=== PATIENT | female | born 1955 | race Caucasian/White ===

== ENCOUNTER 2023-07-25 08:19 | Outpatient (OUT) | payer MEDICARE, OTHER, SELFPAY ==
[2023-07-25 09:57] LABS: Thyroid Stimulating Hormone 1.292 uIU/mL (0.358-3.740)
== END 2023-07-25 08:20 | disposition home or self-care (01) ==
LOC: LAB 08:24
PROVIDERS: PCP Internal Medicine; Visit Provider Internal Medicine
DX: E06.3 Autoimmune thyroiditis (principal)
CPT/HCPCS: 36415; 84443

== ENCOUNTER 2024-03-17 14:11 | Outpatient (OUT) | payer MEDICARE, OTHER, SELFPAY ==
--- OUTSIDE RECORDS SUMMARY | 2024-03-17 14:16 | XMS_ITS | CCD ---
Author Organization [facility]iniSyn[facility] Care Team Providers Care Carbide Die Maker Name Role Phone BernieXiang Unavailable REQUEST, DR GRANT LISTED Admitting Unavaila ble REQUEST, DR GRANT LISTED Attending Unavaila ble DEXTER, DR GREWAL Primary Care Unavailable REQUEST, DR GRANT LISTED Consulting Unavaila ble DEXTER, DR GREWAL Admitting Unavailable DEXTER, DR GREWAL Attending Unavailable DEXTER, DR GREWAL Primary Care Unavailable DEXTER, DR GREWAL Consulting Unavailable DO Christophe Renteria Primary Care Provider DO Syeda Moreno Attending Provider Christophe Renteria Unavailable DO Christophe Renteria Primary Care Provider [phone] Self, Referral Attending Provider Unavailable Christophe Renteria Primary Care Unavailable Self, Referral Attending Unavailable Self, Referral Admitting Unavailable JASON RATLIFF Attending Unavailable BILL SOLIS Attending Unavailable BILL SOLIS Attending Unavailable Medications Current Medications Medication Drug Class(es) Dates Sig (Normalized) Sig (Original) alendronic acid 70 mg oral tablet (6 sources) Bisphosphonate Start: 11-16-2023 Alendronate Active 0 .ROUTE .COMPLEX November 16, 2023 1:56pm TAKE 1 TABLET WEEKLY WITH A FULL GLASS OF WATER AND AVOID LAYING FLAT OR EATING FOR 30 MINUTES Start: 11-16-2023 End: 11-16-2023 take 1 tablet by mouth every week Alendronate Discontinued 70 MG PO every week November 16, 2023 12:00am November 16, 2023 1:56pm TAKE 1 TABLET WEEKLY WITH A FULL GLASS OF WATER AND AVOID LAYING FLAT OR EATING FOR 30 MINUTES Alendronate Sodi um 70 MG TAKE 1 TABLET WEEKLY WITH A FULL GLASS OF WATER AND AVOID LAYING FLAT OR EATING FOR 30 MINUTES Active 1 ml denosumab 60 mg/ml prefilled syringe (3 sources) RANK Ligand Inhibitor Prolia 60 MG/ML Subcutaneous Active diclofenac sodium 0.01 mg/mg topical gel (3 sources) Nonsteroidal Anti-inflammatory Drug Start: 1 Voltaren 1 % apply 1-2 grams to affected area Transdermal BID PRN for 30 days Jun, Active famotidine 20 mg oral tablet (6 sources) Histamine-2 Receptor Antagonist Start: 3 take 1 tablet by mouth every twelve hours Famotidine 20 MG 1 tablet Orally bid Jan, Active Start: 05-28-2019 take 20 mg by mouth once daily Famotidine Active 20 MG PO Daily May 28, 2019 12:00am ibuprofen 800 mg oral tablet (3 sources) Nonsteroidal Anti-inflammatory Drug take 1 tablet by mouth three times daily at mealtime as needed Ibuprofen 800 MG 1 tablet with food or milk as needed Orally Three times a day Active levothyroxine sodium 0.075 mg oral tablet (7 sources) l-Thyroxine Start: 019 take 1 tablet by mouth once daily Levothyroxine (Synthroid) 75 mcg tablet Active 75 MCG PO Daily May 28, 2019 12:00am take 1 tablet by mouth once zaina y Levothyroxine Sodium 75 MCG TAKE 1 TABLET BY MOUTH EVERY DAY ON EMPTY STOMACH Active take 1 tablet by moriah th once daily in the morning Levothyroxine Sodium 50 MCG 1 tablet on an empty stomach in the morning Orally Once a day Active meloxicam 15 mg oral tablet (3 sources) Nonsteroidal Anti-inflammatory Drug Start: 06-19-2021 take 1 tablet by mouth every twenty-four hours Meloxicam 15 MG 1 tablet Orally Once a day for 30 day(s) Jun, Active Completed/Discontinued Medications Medication Drug Class(es) Dates Sig (Normalized) Sig (Original) azithromycin 250 mg oral tablet (4 sources) Macrolide Antimicrobial Start: 12-17-2022 Azithromycin 250 MG as directed Orally daily for 5 days December, Not-Taking/PRN predniSONE 20 mg oral tablet (3 sources) Start: 02-13-2023 predniSONE 20 MG 1 tablet Orally twice daily w food x 4 days then qd w/ food x 4 days for 8 days Jan, Not-Taking/PRN Triamcinolone (8 sources) Corticosteroid Start: 04-30-2020 Kenalog -40 mg 14 Apr, 2020 40 mg Start: 03-31-2018 Kenalog -40 mg 15 Mar, 2018 10 mg Problems Active Problems Problem Classification Problem Date Documented Date Episodic/Chronic Acute bronchitis (2 sources) Acute bronchitis; Translations: [Acute bronchitis due to other specified organisms] Episodic Asthma (2 sources) Cough variant asthma; Translations: [Cough variant asthma] Chronic Conditions associated with dizziness or vertigo (2 sources) Vertigo; Translations: [Dizziness and giddiness] 05-28-2019 Episodic Esophageal disorders (6 sources) Esophageal reflux finding; Translations: [Esophageal reflux] Onset: 10-19-2013 Chronic Immunizations and screening for infectious disease (2 sources) Contact with and (suspected) exposure to other viral communicable diseases; Translations: [Contact with and (suspected) exposure to COVID-19] Episodic Osteoarthritis (10 sources) Arthritis of right knee; Translations: [Unilateral primary osteoarthritis, right knee] Chronic Osteoporosis (3 sources) Primary osteoporosis; Translations: [Age-related osteoporosis without current pathological fracture] Chronic Other congenital anomalies (2 sources) Congenital spondylolysis of lumbosacral region; Translations: [Congenital spondylolysis, lumbosacral region] Onset: 01-19-2018 Chronic Other connective tissue disease (1 source) Lateral epicondylitis, right elbow Episodic Other injuries and conditions due to external causes (2 sources) History of fall; Translations: [History of falling] Episodic Other lower respiratory disease (2 sources) Chronic cough; Translations: [Chronic cough] Episodic Other screening for suspected conditions (not mental disorders or infectious disease) (3 sources) Encounter for screening mammogram for malignant neoplasm of breast; Translations: [Encounter for screening for malignant neoplasm of colon] Onset: 12-14-2023 Episodic Other upper respiratory infections (6 sources) Acute maxillary sinusitis; Translations: [Acute recurrent maxillary sinusitis] Onset: 02-21-2015 Resolved: 05-25-2020 Episodic Residual codes; unclassified (2 sources) Left against medical advice; Translations: [Procedure and treatment not carried out because of patient's decision for other reasons] 05-28-2019 Episodic Syncope (2 sources) Syncope; Translations: [Syncope and collapse] 05-28-2019 Episodic Systemic lupus erythematosus and connective tissue disorders (2 sources) Autoimmune disease; Translations: [Autoimmune disease, not elsewhere classified] Onset: 10-19-2013 Chronic Thyroid disorders (15 sources) Autoimmune thyroiditis; Translations: [Kvng thyroiditis] Onset: 10-19-2013 Chronic Past or Other Problems Problem Classification Problem Date Documented Da te Episodic/Chronic Bacterial infection; unspecified site (2 sources) Bacterial infectious disease; Translations: [Bacterial infection, unspecified, in conditions classified elsewhere and of unspecified site] Onset: 07-12-2018 Episodic Esophageal disorders (2 sources) Esophageal disorders; Translations: [Gastroesophageal reflux disease with esophagitis without hemorrhage] Malaise and fatigue (2 sources) Malaise and fatigue; Translations: [Other malaise and fatigue] Onset: 04-12-2018 Episodic Other connective tissue disease (1 source) Pain in right hand Onset: 06-19-2021 Resolved: 06-19-2021 Episodic Other connective tissue disease (1 source) Synovitis and tenosynovitis, unspecified Onset: 06-19-2021 Resolved: 06-19-2021 Episodic Other nervous system disorders (2 sources) Paresthesia; Translations: [Paresthesia of skin] Onset: 04-12-2018 Episodic Other nervous system disorders (2 sources) Hyperesthesia; Translations: [Hyperesthesia] Onset: 04-12-2018 Episodic Other non-traumatic joint disorders (2 sources) Arthralgia of the lower leg; Translations: [Pain in joint, lower leg] Onset: 02-22-2018 Episodic Spondylosis; intervertebral disc disorders; other back problems (2 sources) Low back pain; Translations: [Low back pain, unspecified] Onset: 02-22-2018 Episodic Sprains and strains (4 sources) Low back strain; Translations: [Strain of muscle, fascia and tendon of lower back, initial encounter] Onset: 12-14-2017 Episodic Results Test Name Value Interpretation Reference Range Facility MM screening mammo BI w/CADo n 12-14-2023 MM screening mammo BI w/CAD [facility] [place] [address] Mammography Report Signed Patient: Vashti Salgado MR#: [id number] 54 : 1955 Acct:[id number] Age/Sex: 68 / F ADM Date: 12/14/23 Loc: [place] Room: Type: [facility] Attending Dr: Referral Self Copies to: Christophe Renteria DO SELF,REFERRAL Ordering Provider: SELF,REFERRAL Date of Service: 12/14/23 MM/MM screening mammo BI w/CAD: SCREENING CLINICAL DATA: Screening for malignancy. BILATERAL SCREENING MAMMOGRAMS - FULL FIELD DIGITAL WITH TOMOSYNTHESIS AND CAD Tomosynthesis craniocaudal and mediolateral oblique views of both breasts were obtained using low- dose digital technique. Comparison is made to prior studies from December 07, 2020 through December 10, 2022. This examination was reviewed with the aid of CAD. There are scattered fibroglandular densities. Benign and vascular calcifications are visualized. There are no developing masses, typically malignant calcifications or architectural distortion. There has been no significant interval change. MM/MM screening mammo BI w/CAD IMPRESSION: NO MAMMOGRAPHIC EVIDENCE OF MALIGNANCY. ROUTINE FOLLOW-UP IS RECOMMENDED IN ONE YEAR. RESULT CODE: 2 Benign Findings(s) DENSITY CODE: 2 (approximately 25-50% glandular) FOLLOW UP: 1YR The false-negative rate of mammography is approximately 10-percent. Management of a palpable abnormality must be based on clinical grounds. Patient was entered into a reminder system with a target due date for the next mammogram. Impression dictated by: Sveta Mora M.D.12/14/2023 3:46 PM Dictation Location: [facility] Transcribed By: [facility] 12/14/23 1546 Dictated By: Sveta Mora MD 12/14/23 1541 Signed By: 12/14/23 1546 Normal [facility] CBC AUTO DIFFon 08-06-2022 BASO # 0.1 103/ul Normal 0.0-0.1 [facility] Comment on above: Performed By: #### D ATCBC #### [facility] [address] [place] [address] Dr. Lori Lombardi Basophils/100 WBC (Bld) 0.8 % Normal 0.2-2.0 [facility] Comment on above: Performed By: #### D ATCBC #### [facility] [address] [place] [address] Dr. Lori Lombardi EO # 0.1 103/ul Normal 0.0-0.7 [facility] Comment on above: Performed By: #### D ATCBC #### [facility] [address] [place] [address] Dr. Lori Lombardi Eosinophils/100 WBC (Bld) 1.3 % Normal 0.9-7.0 [facility] Comment on above: Performed By: #### D ATCBC #### [facility] [address] [place] [address] Dr. Lori Lombardi Erythrocyte distribution width (RBC) [Ratio] 11.9 % Normal 11.0-15.0 [facility] Comment on above: Performed By: #### D ATCBC #### [facility] [address] [place] [address] Dr. Lori Lombardi Hematocrit (Bld) [Volume fraction] 41.5 % Normal 36.0-48.0 [facility] Comment on above: Performed By: #### D ATCBC #### [facility] [address] [place] [address] Dr. Lori Lombardi Hemoglobin (Bld) [Mass/Vol] 14.0 g/dL Normal 12.0-16.0 [facility] Comment on above: Performed By: #### D ATCBC #### [facility] [address] [place] [address] Dr. Lori Lombardi IG # 0.01 10e3/ul Normal 0.00-0.03 [facility] Comment on above: Performed By: #### D ATCBC #### [facility] [address] [place] [address] Dr. Lori Lombardi IG % 0.2 % Normal 0.0-0.5 [facility] Comment on above: Performed By: #### D ATCBC #### [facility] [address] [place] [address] Dr. Lori Lombardi LYMPH # 1.3 103/ul Normal 1.2-3.8 [facility] Comment on above: Performed By: #### D ATCBC #### [facility] [address] [place] [address] Dr. Lori Lombardi Lymphocytes/100 WBC (Bld) 19.7 % Critically low 20.5-60.0 [facility] Comment on above: Performed By: #### D ATCBC #### [facility] [address] [address] [address] Lori Lombardi MCH (RBC) [Entitic mass] 31.7 pg Normal 26.7-34.0 [facility] Comment on above: Performed By: #### D ATCBC #### [facility] [address] [place] [address] Dr. Lori Lombardi MCHC (RBC) [Mass/Vol] 33.7 g/dL Normal 29.9-35.2 [facility] Comment on above: Performed By: #### D ATCBC #### [facility] [address] [place] [address] Dr. Lori Lombardi MCV (RBC) [Entitic vol] 94.1 fL Normal 81.0-99.0 [facility] Comment on above: Performed By: #### D ATCBC #### [facility] [address] [place] [address] Dr. Lori Lombardi MONO # 0.4 103/ul Normal 0.3-0.8 [facility] Comment on above: Performed By: #### D ATCBC #### [facility] [address] [place] [address] Dr. Lori Lombardi Monocytes/100 WBC (Bld) 6.0 % Normal 1.7-12.0 [facility] Comment on above: Performed By: #### D ATCBC #### [facility] [address] [place] [address] Dr. Lori Lombardi NEUT # 4.6 103/ul Normal 1.4-6.5 [facility] Comment on above: Performed By: #### D ATCBC #### [facility] [address] [place] [address] Dr. Lori Lombardi Neutrophils/100 WBC (Bld) 72.0 % Normal 43.0-75.0 [facility] Comment on above: Performed By: #### D ATCBC #### [facility] [address] [place] [address] Dr. Lori Lombardi Platelet mean volume (Bld) [Entitic vol] 9.4 fL Critically low 9.5-13.5 [facility] Comment on above: Performed By: #### D ATCBC #### [facility] [address] [address] [address] Lori Lombardi PLT 218 103/ul Normal 150-450 [facility] Comment on above: Performed By: #### D ATCBC #### [facility] [address] [address] [address] Lori Lombardi RBC 4.41 106/ul Normal 4.20-5.40 [facility] Comment on above: Performed By: #### D ATCBC #### [facility] [address] [address] [address] Lori Lombardi WBC 6.3 103/ul Normal 4.0-11.0 [facility] Comment on above: Performed By: #### D ATCBC #### [facility] [address] [place] [address] Dr. Lori Lombardi ARDEN- BMP WITH LIPIDon 2021 Anion gap [Moles/Vol] 10.3 mmol/L Normal [facility] Comment on above: Performed By: #### D ATBMP #### [facility] [address] [place] [address] Dr. Lori Lombardi Calcium [Mass/Vol] 9.2 mg/dL Normal 8.5-10.1 [facility] Comment on above: Performed By: #### D ATBMP #### [facility] [address] [place] [address] Dr. Lori Lombardi Chloride [Moles/Vol] 102 mmol/L Normal 98-107 [facility] Comment on above: Performed By: #### D ATBMP #### [facility] [address] [address] [address] Lori Lombardi Cholesterol [Mass/Vol] 181 mg/dL Normal <=200 [facility] Comment on above: Performed By: #### D ATBMP #### [facility] [address] [address] [address] Lori Lombardi Cholesterol in HDL [Mass/Vol] 79 mg/dL Critically high 40-60 [facility] Comment on above: Performed By: #### D ATBMP #### [facility] [address] [address] [address] Lori Lombardi Cholesterol in LDL [Mass/Vol] 88.8 mg/dL Normal [facility] Comment on above: Performed By: #### D ATBMP #### [facility] [address] [address] [address] Lori Lombardi CO2 [Moles/Vol] 32.0 mmol/L Normal 21.0-32.0 [facility] Comment on above: Performed By: #### D ATBMP #### [facility] [address] [address] [address] Lori Lombardi Creatinine [Mass/Vol] 0.73 mg/dL Normal 0.55-1.02 [facility] Comment on above: Performed By: #### D ATBMP #### [facility] [address] [address] [address] Lori Lombardi EGFR-AF IRISH >60 Normal >=60 [facility] Comment on above: Performed By: #### D ATBMP #### [facility] [address] [address] [address] Lori Lombardi EGFR-NON AF IRISH >60 Normal >=60 [facility] Comment on above: Performed By: #### D ATBMP #### [facility] [address] [address] [address] Lori Lombardi Glucose [Mass/Vol] 88 mg/dL Normal 74-106 [facility] Comment on above: Performed By: #### D ATBMP #### [facility] [address] [address] [address] Lori Lombardi HDL NORMAL > or = 60 mg/dl - LOW CARDIOVASCULAR RISK <40 mg/dl - HIGH CARDIOVASCULAR RISK Normal [facility] Comment on above: Performed By: #### D ATBMP #### [facility] [address] [address] [address] Lori Lombardi LDL CALC NORMAL SEE BELOW Normal [facility] Comment on above: Result Comment: <100 mg/dl OPTIMAL 100 - 129 mg/dl NEAR OR ABOVE OPTIMAL 130 - 159 mg/dl BORDERLINE HIGH 160 - 189 mg/dl HIGH >190 mg/dl VERY HIGH Performed By: #### D ATBMP #### [facility] [address] [address] [address] Lori Lombardi Potassium [Moles/Vol] 4.3 mmol/L Normal 3.5-5.1 [facility] Comment on above: Performed By: #### D ATBMP #### [facility] [address] [address] [address] Lori Lombardi Sodium [Moles/Vol] 140 mmol/L Normal 136-145 [facility] Comment on above: Performed By: #### D ATBMP #### [facility] [address] [address] [address] Lori Lombardi Triglyceride [Mass/Vol] 66 mg/dL Normal <=150 [facility] Comment on above: Performed By: #### D ATBMP #### [facility] [address] [address] [address] Lori Lombardi Urea nitrogen [Mass/Vol] 17.0 mg/dL Normal 7.0-18.0 [facility] Comment on above: Performed By: #### D ATBMP #### [facility] [address] [address] [address] Lori Lombardi Urea nitrogen/Creatinin e [Mass ratio] 23.3 mg/mg Normal [facility] Comment on above: Performed By: #### D ATBMP #### [facility] [address] [address] [address] Lori Lombardi VLDL CALC 13.2 mg/dL Normal [facility] Comment on above: Performed By: #### D ATBMP #### [facility] [address] [address] [address] Lori Lombardi TSHon 08-06-2022 TSH 1.218 uIU/mL Normal 0.358-3.740 [facility] Comment on above: Performed By: #### T #### [facility] [address] [address] [address] Lori Lombardi XR hand RT min 3V*on 021 XR hand RT min 3V* [facility] Other XR hand RT min 3V* [facility] Other XR hand RT min 3V* [address] [place] [address] [facility] Other XR hand RT min 3V* MATHEUS Zhang [address] [facility] Other XR hand RT min 3V* XRay Report [facility] Other XR hand RT min 3V* Signed [facility] Other XR hand RT min 3V* Patient: Vashti Salgado MR#: [id number] [facility] Other XR hand RT min 3V* 52 [facility] Other XR hand RT min 3V* : 1955 Acct:[id number] [facility] Other XR hand RT min 3V* Age/Sex: 66 / F ADM Date: 06/19/21 [facility] Other XR hand RT min 3V* Loc: [facility] Room: Type: [facility] Other XR hand RT min 3V* Attending Dr: Xiang Gibbs DO [facility] Other XR hand RT min 3V* Ordering Provider: Xiang Gibbs DO [facility] Other XR hand RT min 3V* Date of Service: 06/19/21 [facility] Other XR hand RT min 3V* XR/XR hand RT min 3V*: Right hand pain [facility] Other XR hand RT min 3V* Copies to: Xiang Gibbs DO [facility] Other XR hand RT min 3V* Right hand 06/19/2021. [facility] Other XR hand RT min 3V* CLINICAL DATA: Right second finger pain. No known injury. [facility] Other XR hand RT min 3V* FINDINGS: 3 views of the right hand were obtained. [facility] Other XR hand RT min 3V* No acute fracture or dislocation is identified. Mild degenerative changes are seen. No bony erosion [facility] Other XR hand RT min 3V* or destruction is visualized. No significant soft tissue swelling is noted. [facility] Other XR hand RT min 3V* XR/XR hand RT min 3V* [facility] Other XR hand RT min 3V* IMPRESSION: Mild degenerative changes. No acute bony abnormality. [facility] Other XR hand RT min 3V* Impression dictated by: Ignacio Shearer Jr., M.D.06/19/2021 4:41 PM [facility] Other XR hand RT min 3V* Dictation Location: [place] [address] [facility] Other XR hand RT min 3V* Transcribed By: MARQUIS 06/19/21 1641 [facility] Other XR hand RT min 3V* Dictated By: Ignacio Shearer Jr, MD 06/19/21 1639 [facility] Other XR hand RT min 3V* Signed By: [facility] Other XR hand RT min 3V* 06/19/21 1641 [facility] Other Vital Signs Date Time Vital Sign Value Performing Clinician Facility 07-21-2023 14:30-0500 Body height [facility] Other [facility] Other 07-21-2023 14:30-0500 Body mass index (BMI) [Ratio] 20.46 kg/m2 [facility] Other [facility] Other 07-21-2023 14:30-0500 Body weight 57.52 kg Christophe Ball Other [facility] Other 07-21-2023 14:30-0500 Diastolic blood pressure 75 mm[Hg] Christophe Ball Other [facility] Other 07-21-2023 14:30-0500 Respiratory rate 12 /min Christophe Ball Other [facility] Other 07-21-2023 14:30-0500 Systolic blood pressure 114 mm[Hg] Christophe Ball Other [facility] Other 02-13-2023 14:45-0400 Body height Christophe Ball Other [facility] Other 02-13-2023 14:45-0400 Body mass index (BMI) [Ratio] 20.17 kg/m2 Christophe Ball Other [facility] Other 02-13-2023 14:45-0400 Body weight 56.7 kg Christophe Ball Other [facility] Other 02-13-2023 14:45-0400 Diastolic blood pressure 67 mm[Hg] Christophe Ball Other [facility] Other 02-13-2023 14:45-0400 Respiratory rate 12 /min Christophe Ball Other [facility] Other 02-13-2023 14:45-0400 Systolic blood pressure 107 mm[Hg] Christophe Ball Other [facility] Other 06-19-2021 15:30-0400 Body height Xiang Gibbs Other [facility] Other 06-19-2021 15:30-0400 Body mass index (BMI) [Ratio] 20.54 kg/m2 Xiang Gibbs Other [facility] Other 06-19-2021 15:30-0400 Body weight 57.74 kg Xiang Gibbs Other [facility] Other Encounters Encounter Date Encounter Type Care Provider Facility Start: 12-23-2023 End: 12-23-2023 ambulatory BILL H ITZKOWITZ Not Available Start: 12-14-2023 End: 12-14-2023 ambulatory Christophe Dexter Facility:[facility] Start: 12-14-2023 End: 12-14-2023 ambulatory DO Christophe Renteria Work Phone: [facility] Work Phone: Start: 12-14-2023 End: 12-14-2023 Patient encounter procedure DO Christophe Renteria Work Phone: [facility] Work Phone: Start: 12-03-2023 End: 12-03-2023 ambulatory BILL H ITZKOWITZ Not Available Start: 12-01-2023 End: 12-01-2023 ambulatory JASON RATLIFF Not Available Start: 11-16-2023 Non-patient / Non-visit DO Jose L gomez Dexter Work Phone: [facility] Work Phone: Start: 07-27-2023 End: 07-27-2023 ambulatory Christophe Dexter Other [facility] Other Start: 07-27-2023 Telephone encounter Christophe ANDRADE G [facility] Start: 07-21-2023 End: 07-21-2023 ambulatory Christophe Dexter Other [facility] Other Start: 07-21-2023 Patient encounter procedure Christophe Renteria [facility] Start: 02-13-2023 End: 02-13-2023 ambulatory Christophe Renteria Other [facility] Other Start: 02-13-2023 Office outpatient vi sit 15 minutes Christophe Renteria [facility] Start: 02-02-2023 End: 02-02-2023 ambulatory Christophe Renteria Other [facility] Other Start: 02-02-2023 Telephone encounter Christophe [facility] Start: 12-10-2022 End: 12-10-2022 ambulatory DO Christophe Renteria Work Phone: [facility] Work Phone: Start: 12-10-2022 End: 12-10-2022 Patient encounter procedure DO Christophe Renteria Work Phone: [facility] Work Phone: Start: 08-06-2022 End: 08-07-[address] CHRISTOPHE RENTERIA Facility:[facility] Start: 08-06-2022 End: 08-07-[address] GRANT LISTED REQUEST Facility:[facility] Start: 07-14-2022 Adult health examination Christophe Renteria Other [facility] Other Start: 06-19-2021 End: 06-19-2021 ambulatory Xiang Gibbs Other [facility] Other Start: 06-19-2021 Office outpatient vi sit 15 minutes Xiang Gibbs [facility] Procedures Date Procedure Procedure Detail Performing Clinician Start: 12-14-2023 Screening mammograph y of bilateral breasts DO Christophe Renteria Work Phone: Start: 12-10-2022 Dual energy X-ray absorptiometry DO Christophe Renteria Work Phone: Start: 12-10-2022 Screening mammograph y of bilateral breasts DO Christophe Renteria Work Phone: Start: 02-21-2015 General examination of patient Christophe Renteria Other Depression screening Marimar Renteria Other Immunizations Immunization Date Immunization Notes Care Provider Miguel mack 04-15-2023 influenza, injectabl e, quadrivalent, preservative free Christophe Renteria Other [facility] 07-14-2022 Prevnar 20 Christophe Renteria Other [facility] 03-30-2020 influenza virus vaccine, split virus (incl. purified surface antigen) Christophe Renteria Other [employer] Other 03-30-2020 influenza virus vaccine, unspecified formulation DO Christophe Renteria Work Phone: [facility] 05-05-2018 influenza virus vaccine, split virus (incl. purified surface antigen) Christophe Renteria Other [employer] Other 05-05-2018 influenza virus vaccine, unspecified formulation DO Christophe Renteria Work Phone: [facility] 04-08-2017 influenza virus vaccine, split virus (incl. purified surface antigen) Christophe Renteria Other [facility] Other 04-08-2017 influenza virus vaccine, unspecified formulation DO Christophe [employer] Work Phone: [facility] 04-18-2016 tetanus and diphther ia toxoids, adsorbed, preservative free, for adult use (5 Lf of tetanus toxoid and 2 Lf of diphtheria toxoid) Christophe Renteria Other [facility] 04-20-2013 tetanus and diphther ia toxoids, adsorbed, preservative free, for adult use (5 Lf of tetanus toxoid and 2 Lf of diphtheria toxoid) Christophe Renteria Other [facility] pneumococcal Conjuga te, unspecified formulation; Translations: [Need for prophylactic vaccination against Streptococcus pneumoniae (pneumococcus)] Christophe Renteria Other [employer] Other Fluzone Quadrivalent 0.5 ML; Translations: [Fluzone Quadrivalent 0.5 ML] Xiang Gibbs Other [facility] Other Payers Date Payer Category Payer Medicare [id number] 1957 Self-pay 1957 Unknown [id number] 1955 Unknown [id number] 1955 Unknown [id number] 1955 Unknown [id number] 1955 Unknown [id number] Private Health Insurance [facility] [id number] Unknown [id number] Unknown [id number] Unknown [id number] Social History Date Type Detail Facility Unknown if ever smoked [facility] Other Sex Assigned At Sex Assigned At Bir th [facility] Other Start: 05-28-2019 Tobacco smoking status ALIS Never smoked tobacco (finding) [facility] Start: 1955 Sex Assigned At Female F [facility] Evaluation note 07-21-2023 Note Date & Type Note Facility 07-21-2023 Evaluation note Encounter Date Diagnosis Assessment Notes Jul, Medicare annual wellness visit, initial (ICD-10 - Z00.00) Personalized health advice was given to the beneficiary including a written plan for screenings discussed and provided. Advanced care planning reviewed and/or information given as requested. Additional counseling was provided here today in regards to, [ ]. The above visit was performed by [ ] under direct supervision of [ ]. Document reviewed and amended by provider signed below. Jul, Age-related osteoporosis without current pathological fracture (ICD-10 - M81.0) Ca and Vit D supplements, weight bearing exercises. Continue Bisphosphonates, will review hx DEXA qlitzy Salinas recommend 5 years on Bisphosphonate followed by drug holiday. Jul, Autoimmune thyroiditis (ICD-10 - E06.3) Clinically euthyroid, check TSH yearly Jul, Other specified hypothyroidism (ICD-10 - E03.8) Jul, Gastroesophageal reflux disease with esophagitis without hemorrhage (ICD-10 - K21.00) Diet instructions: Smaller portions, avoid eating and laying flat, avoid eating or drinking prior to bedtime. Weight loss. Continue Pepcid Jul, Screening mammogram for breast cancer (ICD-10 - Z12.31) Instructed patient on monthly SBE and yearly mammograms. Jul, Colon cancer screening (ICD-10 - Z12.11) Referral for screening colonoscopy [facility] Other Evaluation note 02-13-2023 Note Date & Type Note Facility 02-13-2023 Evaluation note Encounter Date Diagnosis Assessment Notes Jan, Lateral epicondylitis of right elbow (ICD-10 - M77.11) Handouts for stretching exercise. Tennis elbow sleeve suggested. Ice/heat and Voltaren Gel. No improvement: OT/PT, Orthopedic referral [facility] Other Evaluation note 06-19-2021 Note Date & Type Note Facility 06-19-2021 Evaluation note Encounter Date Diagnosis Assessment Notes Jun, Right hand pain (ICD-10 - M79.641) Patient given prescription for Meloxicam and Voltaren Gel Jun, Tenosynovitis of right hand (ICD-10 - M65.9) Mona presents with right index finger tenosynovitis R sagittal band strain. At this juncture we have discussed the findings and diagnosis as well as personally reviewed appropriate imaging and performed interpretation of related testing and examination with the patient in office today. Prior medical notes and history have been reviewed. At this time I would recommend anti-inflammator ies with meloxicam as well as Voltaren gel. Continue to monitor for any changes. Continue to work on range of motion and activities. We will plan for follow-up 6 to 8 weeks as needed. The patient has been involved in our cooperative treatment plan and agrees to move forward with treatment at this time. Jun, Other See orders for this visit as documented in the electronic medical record. [facility] Other Evaluation note Note Date & Type Note Facility Evaluation note No assessment information availa ble [facility] Work Phone: Evaluation note Note Date & Type Note Facility Evaluation note No Information [employer] Other History general Narrative - Reported Note Date & Type Note Facility History general Narrative - Reported Type Medical History osteoporosis Surgical History hemorrhoidectomy Surgical History breast biopsy [facility] Other History general Narrative - Reported Note Date & Type Note Facility History general Narrative - Reported Type Medical History osteoporosis Medical History 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 hemorrhage Medical History Acquired autoimmune hypothyroidi sm Surgical History hemorrhoidectomy Surgical History breast biopsy Surgical History COLONOSCOPY 2012 Surgical History EGD 2012 Hospitalization History SEE SURGICAL HX [facility] Other Reason for referral (narrative) Note Date & Type Note Facility Reason for referral (narrative) Diagnosis 1 Colon cancer screeni ng (Z12.11) Referral Organization [facility] Referring Provider First Name Christophe Referring Provider Last Name Dexter Referring Provider Specialty Internal Medicine Referred Organization [facility] Referred Provider Bill Solis Referred Address [address] [place] [phone] Referred Provider Specialty Surgery Referral Priority Routine General Notes Mrs. Salgado is an asymptomatic, low risk patient being referred for a screening colonoscopy. Her last colonoscopy was in 2012. She denies change in appetite, weight or bowel habits. She denies heartburn or dysphagia. She denies abdominal pain, melena or hematochezia. [facility] Other Summary Purpose Family History No Family History Records Found Relationship Condition Age at Onset Recorded Date/T pat father Unknown Not Specified Heart disease Unknown Unknown Advance Directives No Advanced Directives Records Found Advance Directive Response Recorded Date/ Time Advance Directives No September 12:20pm Chief Complaint and Reason for Visit Chief Complaint Z12.31 Z13.820 Z78.0 Chief Complaint Amb Documentation Z12.31 Z13.820 Z78.0 Additional Source Comments REASON FOR VISIT (unrecogniz ed section and content) Right Hand PainrefillPossibl e [facility]ness[facility] results INFORMATION SOURCE (unrecogn ized section and content) DATE CREATED AUTHOR 08/13/2022 [facility] DATE CREATED AUTHOR AUTHOR'S ORGANIZ ATION 12/17/[address] [facility] DATE CREATED AUTHOR AUTHOR'S ORGANIZ ATION 12/25/2023 [facility] EPIC Care Teams (unrecognized sec tion and content) Team Status: Active Member Role Status Dates Christophe Renteria , Primary Care Provider Active Team Status: Active Member Role Status Dates Christophe Renteria DO Primary Care Provider Active Start: November 16, 2023 KALYANI Kinsey Attending Provider Active Start : November 16, 2023 Team Status: Inactive Member Role Status Dates Christophe Renteria , Primary Care Provider Active Start: December 14, 2023 End: December 14, 2023 Referral Self Attending Provider Active Start: A prifabrice 2023 End: December 14, 2023 Team Status: Inactive Member Role Status Dates Christophe Renteria DO Primary Care Provider Active Syeda Moreno DO Attending Provider Active Goals (unrecognized section and content) Goals may be documented in a n alternate section FOR RECORDS PERTAINING TO PATIENTS WHO ARE OR HAVE BEEN ENROLLED IN A CHEMICAL DEPENDENCY/SUBSTANCEABUSE PROGRAM, SOME INFORMATION MAY BE OMITTED. This clinical summary was aggregated from multiple sources. Caution should be exercised in using it in the provision of clinical care. This summary normalizes information from multiple sources, and as a consequence, information in this document may materially change the coding, format and clinical context of patient data. In addition, data may be omitted in some cases. CLINICAL DECISIONS SHOULD BE BASED ON THE PRIMARY CLINICAL RECORDS. [facility]. provides no warranty or guarantee of the accuracy or completeness of information in this document.
--- NOTE | 2024-03-17 14:26 | XR_ITS ---
The [address] [address] Patient Name: EREN IZQUIERDO MRN: [id number] date: 1955 Sex: F Assigned Patient Location: LAB Current Patient Location: Accession/Order Number: [id number] Exam Date: 03/17/2024 14:40 Report Date: 03/18/2024 05:28 At the request of: MELIDA MALIK Procedure: XR abdomen 1V EXAMINATION: XR abdomen 1V HISTORY: Hematuria R31.9 COMPARISON: No relevant comparison available. FINDINGS: KIDNEY/URETER - RIGHT: 5 mm calcification projecting over right renal pelvis. KIDNEY/URETER - LEFT: 4 mm calcification projecting over inferior pole of kidney. PELVIS: Multiple pelvic calcifications favoring phleboliths; a distal ureteral stone cannot be excluded. BOWEL: No abnormal dilation or deviation. BONES: No acute abnormality. OTHER: Negative. No abnormal gaseous collections. XR/XR abdomen 1V IMPRESSION: 1. Suspect bilateral nephrolithiasis. Possible stone within right renal pelvis. 2. No definite ureteral stone, but this cannot be excluded. No prior studies for comparison. Electronically authenticated by: ANGEL HIGHTOWER Date: 03/18/2024 05:28
[2024-03-17 14:32] LABS: Basophils Absolute Auto 0.1 10^3/uL (0.0-0.1); Basophils Percent Auto 0.7 % (0.2-2.0); Eosinophils Absolute Auto 0.1 10^3/uL (0.0-0.7); Eosinophils Percent Auto 1.1 % (0.9-7.0); Hematocrit 39.5 % (36.0-48.0); Hemoglobin 13.3 g/dL (12.0-16.0); Immature Granulocytes Abs Auto 0.01 10^3/uL (0.00-0.03); Immature Granulocytes Pct Auto 0.1 % (0.0-0.5); Lymphocytes Absolute Auto 1.5 10^3/uL (1.2-3.8); Lymphocytes Percent Auto 20.3 % (20.5-60.0); Mean Corpuscular HGB Conc 33.7 g/dL (29.9-35.2); Mean Corpuscular Hemoglobin 31.9 pg (26.7-34.0); Mean Corpuscular Volume 94.7 fL (81.0-99.0); Mean Platelet Volume 9.5 fL (9.5-13.5); Monocytes Absolute Auto 0.4 10^3/uL (0.3-0.8); Monocytes Percent Auto 5.6 % (1.7-12.0); Neutrophils Absolute Auto 5.2 10^3/uL (1.4-6.5); Neutrophils Percent Auto 72.2 % (43.0-75.0); Platelet Count 233 10^3/uL (150-450); Red Blood Count 4.17 10^6/uL (4.20-5.40); Red Cell Distribution Width 11.9 % (11.0-15.0); White Blood Count 7.2 10^3/uL (4.0-11.0)
[2024-03-17 16:17] LABS: Anion Gap 12.3; BUN Creatinine Ratio 14.3; Calcium 9.3 mg/dL (8.5-10.1); Carbon Dioxide 28.7 mmol/L (21.0-32.0); Chloride 104 mmol/L (98-107); Estimated GFR (African America >60 (>=60); Estimated GFR (Non-African Ame 57 (>=60); Glucose 100 mg/dL (74-106); Sodium 141 mmol/L (136-145)
== END 2024-03-17 14:12 | disposition home or self-care (01) ==
LOC: LAB 14:12
PROVIDERS: PCP Internal Medicine; Visit Provider Family Medicine
DX: R31.9 Hematuria, unspecified (principal); N20.0 Calculus of kidney
CPT/HCPCS: 36415; 74018; 80048; 85025

== ENCOUNTER 2024-03-26 08:28 | Outpatient (OUT) | payer MEDICARE, OTHER, SELFPAY ==
--- NOTE | 2024-03-26 | CT_ITS ---
[address] [address] Patient Name: EREN IZQUIERDO MRN: [id number] date: 1955 Sex: F Assigned Patient Location: CT Current Patient Location: Accession/Order Number: [id number] Exam Date: 03/26/2024 09:37 Report Date: 03/29/2024 07:48 At the request of: CARMINA BARLOW Procedure: CT abdomen pelvis w con EXAMINATION: CT abdomen pelvis w con HISTORY: Gross Hematuria R31.0 COMPARISON: No relevant comparison available. TECHNIQUE: CT images were created with IV contrast. Axial, Coronal, and Sagittal images. Dose reduction techniques were achieved by using automated exposure control and/or adjustment of mA and/or kV according to patient size and/or use of iterative reconstruction technique. FINDINGS: LUNG BASES: No visible pulmonary or pleural disease. LIVER: No enlargement, atrophy, abnormal density, or significant focal lesion. BILIARY: No visible dilatation or calcification. PANCREAS: No lesion, fluid collection, ductal dilatation, or atrophy. SPLEEN: No enlargement or focal lesion. ADRENALS: No mass or enlargement. KIDNEYS: 4 mm calcification the distal right ureter axial image #94 with no associated obstructive uropathy. Nonobstructing punctate left nephrolith. BOWEL/MESENTERY: Large amount of stool within the rectum which measures 5.8 cm in diameter nonobstructive bowel gas pattern. AORTA/VASCULAR: No aortic aneurysm or dissection. Mild atherosclerosis RETROPERITONEUM: No mass or adenopathy. LYMPH NODES: No adenopathy. URINARY BLADDER: No visible focal wall thickening, lesion, or calculus. PELVIC ORGANS: Dilated left adnexal vessels consider pelvic vascular congestion/uterine vein reflux ABDOMINAL WALL: No mass or hernia. BONES: No bony lesion or fracture. OTHER: Negative. CT/CT abdomen pelvis w con IMPRESSION: 4 mm right distal ureteral calcification with no definite obstructive uropathy Dilated left adnexal vessels, nonspecific, consider uterine vein reflux/pelvic vascular congestion Electronically authenticated by: SONIA EVANGELISTA Date: 03/29/2024 07:48
--- OUTSIDE RECORDS SUMMARY | 2024-03-26 08:31 | XMS_ITS | CCD ---
Author Organization [facility] Care Team Providers Care Turbo Operator Name Role Phone BernieXiang Unavailable REQUEST, NONE LISTED Admitting Unavaila ble REQUEST, DR GRANT LISTED Attending Unavaila ble DEXTER, DR GREWAL Primary Care Unavailable REQUEST, DR GRANT LISTED Consulting Unavaila ble BALL, DR GREWAL Admitting Unavailable BALL, DR GREWAL Attending Unavailable BALL, DR GREWAL Primary Care Unavailable DEXTER, DR GREWAL Consulting Unavailable DO Christophe Renteria Primary Care Provider [phone] DO Syeda Moreno Attending Provider [phone] Christophe Renteria Unavailable DO Christophe Renteria Primary Care Provider [phone] Self, Referral Attending Provider Unavailable JASON RATLIFF Attending Unavailable BILL SOLIS Attending Unavailable BILL SOLIS Attending Unavailable DO Christophe Renteria Primary Care Provider [phone] MD Gracie Myers Attending Provider Gracie Myers Admitting Unavailable Gracie Myers Attending Unavailable Christophe Renteria Primary Care Unavailable Self, Referral Admitting Unavailable Self, Referral Attending Unavailable Christophe Renteria Primary Care Unavailable Medications Current Medications Medication Drug Class(es) Dates Sig (Normalized) Sig (Original) alendronic acid 70 mg oral tablet (10 sources) Bisphosphonate Start: 11-16-2023 Alendronate Active 0 [...] gel (3 sources) Nonsteroidal Anti-inflammatory Drug Start: Voltaren 1 % apply 1-2 grams to affected area Transdermal BID PRN for 30 days Jun, Active famotidine 20 mg oral tablet (12 sources) Histamine-2 Receptor Antagonist Start: take 20 mg by mouth twice daily Famotidine Active 20 MG PO Twice daily 180 90 February 29, 2024 8:27am Start: 02-02-2023 take 1 tablet by moriah th every twelve hours Famotidine 20 MG 1 tablet Orally bid Jan, Active Start: 05-28-2019 End: 02-29-2024 take 20 mg by mouth once daily Famotidine Discontinued 20 MG PO Daily 90 90 February 09, 2024 1:16pm February 29, 2024 8:28am ibuprofen 800 mg oral tablet (3 sources) Nonsteroidal Anti-inflammatory Drug take 1 tablet by mouth three times daily at mealtime as needed Ibuprofen 800 MG 1 tablet with food or milk as needed Orally Three times a day Active levothyroxine sodium 0.075 mg oral tablet (9 sources) l-Thyroxine Start: take 1 tablet by mouth once daily [...] sources) Corticosteroid Start: 04-30-2020 Kenalog -40 mg Apr, 40 mg Start: 03-31-2018 Kenalog -40 mg Mar, 10 mg Problems Active Problems Problem Classification Problem Date Documented Date Episodic/Chronic Acute bronchitis (2 sources) Acute bronchitis; Translations: [Acute bronchitis due to other specified organisms] Episodic Asthma (2 sources) Cough variant asthma; Translations: [Cough variant asthma] Chronic Conditions associated with dizziness or vertigo (4 sources) Vertigo; Translations: [Dizziness and giddiness] 05-28-2019 Episodic Esophageal disorders (6 sources) Esophageal reflux finding; Translations: [Esophageal reflux] Onset: 10-19-2013 Chronic Genitourinary symptoms and ill-defined conditions (6 sources) Blood in urine; Translations: [Hematuria, unspecified] Onset: 03-17-2024 03-17-2024 Episodic Immunizations and screening for infectious disease (2 [...] Chronic cough; Translations: [Chronic cough] Episodic Other upper respiratory infections (6 sources) Acute maxillary sinusitis; Translations: [Acute recurrent maxillary sinusitis] Onset: 02-21-2015 Resolved: 05-25-2020 Episodic Residual codes; unclassified (4 sources) Left against medical advice; Translations: [Procedure and treatment not carried out because of patient's decision for other reasons] 05-28-2019 Episodic Syncope (4 sources) Syncope; Translations: [Syncope and collapse] 05-28-2019 [...] in joint, lower leg] Onset: 02-22-2018 Episodic Other screening for suspected conditions (not mental disorders or infectious disease) (3 sources) Encounter for screening mammogram for malignant neoplasm of breast; Translations: [Encounter for screening for malignant neoplasm of colon] Onset: 12-14-2023 Episodic Spondylosis; intervertebral disc disorders; other back problems (2 sources) Low back pain; Translations: [Low back pain, unspecified] Onset: 02-22-2018 Episodic Sprains and strains (4 sources) Low back strain; Translations: [Strain of muscle, fascia and tendon of lower back, initial encounter] Onset: 12-14-2017 Episodic Results Test Name Value Interpretation Reference Range Facility Basophils Auto (Bld) [#/Vol] on 03-17-2024 Basophils (Bld) [#/Vol] 0.1 10 3/uL 0.0-0.1 [facility] Basophils/100 WBC Auto (Bld) on 03-17-2024 Basophils/100 WBC (Bld) 0.7 % 0.2-2.0 [facility] Eosinophils/100 WBC Auto (Bl d)on 03-17-2024 Eosinophils/100 WBC (Bld) 1.1 % 0.9-7.0 [facility] Erythrocyte distribution wid th Auto (RBC) [Ratio]on 03-17-2024 Erythrocyte distribution width (RBC) [Ratio] 11.9 % 11.0-15.0 [facility] Estimated glomerular filtrat ion rate (GFR) non- Americanon 03-17-2024 GFR/1.73 sq M.predicted among non-blacks MDRD (S/P/Bld) [Vol rate/Area] 57 mL/min/{1.73_m2} Low >=60 [facility] Hematocrit Auto (Bld) [Volum e fraction]on 03-17-2024 Hematocrit (Bld) [Volume fraction] 39.5 % 36.0-48.0 [facility] Hemoglobin [Mass/volume] in Bloodon 03-17-2024 Hemoglobin (Bld) [Mass/Vol] 13.3 g/dL 12.0-16.0 [facility] Laboratory - Chemistry and C hemistry - challengeon 03-17-2024 Calcium [Mass/Vol] 9.3 mg/dL 8.5-10.1 [facility] Chloride [Moles/Vol] 104 mmol/L 98-[address] [facility] CO2 [Moles/Vol] 28.7 mmol/L 21.0-32.0 [facility] Creatinine [Mass/Vol] 0.98 mg/dL 0.55-1.02 [facility] GFR/1.73 sq M.predicted MDRD (S/P/Bld) [Vol rate/Area] mL/min/{1.73_m2} >=60 [facility] Glucose [Mass/Vol] 100 mg/dL 74-106 [facility] Potassium [Moles/Vol] 4.0 mmol/L 3.5-5.1 [facility] Sodium [Moles/Vol] 141 mmol/L 136-145 [facility] Urea nitrogen [Mass/Vol] 14.0 mg/dL 7.0-18.0 [facility] Urea nitrogen/Creatinine [Mass ratio] 14.3 mg/mg [facility] Laboratory - Hematology and Cell countson 03-17-2024 Immature granulocytes/100 WBC (Bld) 0.1 % 0.0-0.5 [facility] Leukocytes [#/volume] correc octaviano for nucleated erythrocytes in Blood by Automated counon 03-17-2024 WBC corrected for nucl RBC Auto (Bld) [#/Vol] 7.2 10 3/uL 4.0-11.0 [facility] Lymphocytes Auto (Bld) [#/Vo l]on 03-17-2024 Lymphocytes (Bld) [#/Vol] 1.5 10 3/uL 1.2-3.8 [facility] Lymphocytes/100 WBC Auto (Bl d)on 03-17-2024 Lymphocytes/100 WBC (Bld) 20.3 % Low 20.5-60.0 [facility] MCH Auto (RBC) [Entitic mass ]on 03-17-2024 MCH (RBC) [Entitic mass] 31.9 pg 26.7-34.0 [facility] MCHC Auto (RBC) [Mass/Vol]on 03-17-2024 MCHC (RBC) [Mass/Vol] 33.7 g/dL 29.9-35.2 [facility] MCV Auto (RBC) [Entitic vol] on 03-17-2024 MCV (RBC) [Entitic vol] 94.7 fL 81.0-99.0 [facility] Monocytes Auto (Bld) [#/Vol] on 03-17-2024 Monocytes (Bld) [#/Vol] 0.4 10 3/uL 0.3-0.8 [facility] Monocytes/100 WBC Auto (Bld) on 03-17-2024 Monocytes/100 WBC (Bld) 5.6 % 1.7-12.0 [facility] Neutrophils Auto (Bld) [#/Vo l]on 03-17-2024 Neutrophils (Bld) [#/Vol] 5.2 10 3/uL 1.4-6.5 [facility] Neutrophils/100 WBC Auto (Bl d)on 03-17-2024 Neutrophils/100 WBC (Bld) 72.2 % 43.0-75.0 [facility] No Panel Informationon 03-17 Eosinophils # (Auto) 0.1 10 3/uL 0.0-0.7 [facility] Immature Granulocyte # (Auto) 0.01 10 3/uL 0.00-0.03 [facility] Platelet mean volume Auto (B ld) [Entitic vol]on 03-17-2024 Platelet mean volume (Bld) [Entitic vol] 9.5 fL 9.5-13.5 [facility] Platelets Auto (Bld) [#/Vol] on 03-17-2024 Platelets (Bld) [#/Vol] 233 10 3/uL 150-450 [facility] RBC Auto (Bld) [#/Vol]on RBC (Bld) [#/Vol] 4.17 10 6/uL Low 4.20-5.40 [facility] Serum or plasma anion gap de terminationon 03-17-2024 Anion gap [Moles/Vol] 12.3 mmol/L [facility] Urine Cultureon 03-17-2024 Bacteria identified Cx Nom (U) No Growth 2 Days PERFORMED BY: [place] [address] PATHOLOGIST [employer]ATION LABORER PETR ZHANG M.D. Normal [facility] Comment on above: Performed By: #### C UU #### [address] MM screening mammo BI w/CADo n 12-14-2023 MM screening mammo BI w/CAD [facility] [place] [address] [place] [address] Mammography Report Signed Patient: Vashti Salgado MR#: [id number] 52 : 1955 Acct:[id number] Age/Sex: 68 / F ADM Date: 12/14/23 Loc: [place] Room: Type: [facility] Attending Dr: Referral Self Copies to: Christophe Renteria, SELF,REFERRAL Ordering Provider: SELF,REFERRAL Date of Service: [...] Sveta Mora M.D.12/14/2023 3:46 PM Dictation Location: [facility] Transcribed By: MARQUIS 12/14/23 1546 Dictated By: Sveta Mora MD 12/14/23 1541 Signed By: 12/14/23 1546 Normal [facility] CBC AUTO DIFFon 08-06-2022 BASO # 0.1 103/ul Normal 0.0-0.1 [facility] Comment on above: Performed By: #### D ATCBC #### [facility] [address] [address] [address] Lori Lombardi Basophils/100 WBC (Bld) 0.8 % Normal 0.2-2.0 [facility] Comment on above: Performed By: #### D ATCBC #### [facility] [address] [place] [address] Dr. Lori Lombardi EO # 0.1 103/ul Normal 0.0-0.[address] [facility] Comment on above: Performed By: #### D ATCBC #### [facility] [address] [place] [address] Dr. Lori Lombardi Eosinophils/100 WBC (Bld) 1.3 % Normal 0.9-7.[address] [facility] Comment on above: Performed By: #### D ATCBC #### [facility] [address] [place] [address] Dr. Lori Lombardi Erythrocyte distribution width (RBC) [Ratio] 11.9 % Normal 11.0-15.[address] [facility] Comment on above: Performed By: #### D ATCBC #### [facility] [address] [place] [address] Dr. Lori Lombardi Hematocrit (Bld) [Volume fraction] 41.5 % Normal 36.0-48.0 [facility] Comment on above: Performed By: #### D ATCBC #### [facility] [address] [place] [address] Dr. Lori Lombardi Hemoglobin (Bld) [Mass/Vol] 14.0 g/dL Normal 12.0-16.0 [facility] Comment on above: Performed By: #### D ATCBC #### [facility] [address] [place] [address] Dr. Lori Lombardi IG # 0.01 10e3/ul Normal 0.00-0.[address] [facility] Comment on above: Performed By: #### D ATCBC #### [facility] [address] [place] [address] Dr. Lori Lombardi IG % 0.2 % Normal 0.0-0.[address] [facility] Comment on above: Performed By: #### D ATCBC #### [facility] [address] [place] [address] Dr. Lori Lombardi LYMPH # 1.3 103/ul Normal 1.2-3.[address] [facility] Comment on above: Performed By: #### D ATCBC #### [facility] [address] [place] [address] Dr. Lori Lombardi Lymphocytes/100 WBC (Bld) 19.7 % Critically low 20.5-60.0 [facility] Comment on above: Performed By: #### D ATCBC #### [facility] [address] [place] [address] Dr. Lori Lombardi MCH (RBC) [Entitic mass] 31.7 pg Normal 26.7-34.[address] [facility] Comment on above: Performed By: #### D ATCBC #### [facility] [address] [place] [address] Dr. Lori Lombardi MCHC (RBC) [Mass/Vol] 33.7 g/dL Normal 29.9-35.[address] [facility] Comment on above: Performed By: #### D ATCBC #### [facility] [address] [place] [address] Dr. Lori Lombardi MCV (RBC) [Entitic vol] 94.1 fL Normal 81.0-99.0 [facility] Comment on above: Performed By: #### D ATCBC #### [facility] [address] [place] [address] Dr. Lori Lombardi MONO # 0.4 103/ul Normal 0.3-0.8 [facility] Comment on above: Performed By: #### D ATCBC #### [facility] [address] [place] [address] Dr. Lori Lombardi Monocytes/100 WBC (Bld) 6.0 % Normal 1.7-12.[address] [facility] Comment on above: Performed By: #### D ATCBC #### [facility] [address] [place] [address] Dr. Lori Lombardi NEUT # 4.6 103/ul Normal 1.4-6.[address] [facility] Comment on above: Performed By: #### D ATCBC #### [facility] [address] [place] [address] Dr. Lori Lombardi Neutrophils/100 WBC (Bld) 72.0 % Normal 43.0-75.[address] [facility] Comment on above: Performed By: #### D ATCBC #### [facility] [address] [place] [address] Dr. Lori Lombardi Platelet mean volume (Bld) [Entitic vol] 9.4 fL Critically low 9.5-13.5 [facility] Comment on above: Performed By: #### D ATCBC #### [facility] [address] [place] [address] Dr. Lori Lombardi PLT 218 103/ul Normal 150-450 [facility] Comment on above: Performed By: #### D ATCBC #### [facility] [address] [address] [address] Lori Lombardi RBC 4.41 106/ul Normal 4.20-5.40 [facility] Comment on above: Performed By: #### D ATCBC #### [facility] [address] [place] [address] Dr. Lori Lombardi WBC 6.3 103/ul Normal 4.0-11.0 [facility] Comment on above: Performed By: #### D ATCBC #### [facility] [address] [place] [address] Dr. Lori Lombardi ARDEN- BMP WITH LIPIDon 2021 Anion gap [Moles/Vol] 10.3 mmol/L Normal [facility] Comment on above: Performed By: #### D ATBMP #### [facility] [address] [place] [address] Dr. Lori Lombardi Calcium [Mass/Vol] 9.2 mg/dL Normal 8.5-10.1 [facility] Comment on above: Performed By: #### D ATBMP #### [facility] [address] [place] [address] Dr. Lori Lombardi Chloride [Moles/Vol] 102 mmol/L Normal 98-107 [facility] Comment on above: Performed By: #### D ATBMP #### [facility] [address] [place] [address] Dr. Lori Lombardi Cholesterol [Mass/Vol] 181 mg/dL Normal <=[address] [facility] Comment on above: Performed By: #### D ATBMP #### [facility] [address] [address] [address] Lori Lombardi Cholesterol in HDL [Mass/Vol] 79 mg/dL Critically high 40-60 [facility] Comment on above: Performed By: #### D ATBMP #### [facility] [address] [address] [address] Lori Lombardi Cholesterol in LDL [Mass/Vol] 88.8 mg/dL Normal [facility] Comment on above: Performed By: #### D ATBMP #### [facility] [address] [address] [address] Lori Lombardi CO2 [Moles/Vol] 32.0 mmol/L Normal 21.0-32.0 [facility] Comment on above: Performed By: #### D ATBMP #### [facility] [address] [place] [address] Dr. Lori Lombardi Creatinine [Mass/Vol] 0.73 mg/dL Normal 0.55-1.02 [facility] Comment on above: Performed By: #### D ATBMP #### [facility] [address] [address] [address] Lori Lombardi EGFR-AF CYMRAES >60 Normal >=60 [facility] Comment on above: Performed By: #### D ATBMP #### [facility] [address] [address] [address] Lori Lombardi EGFR-NON AF CYMRAES >60 Normal >=60 [facility] Comment on above: Performed By: #### D ATBMP #### [facility] [address] [address] [address] Lori Lombardi Glucose [Mass/Vol] 88 mg/dL Normal 74-106 [facility] Comment on above: Performed By: #### D ATBMP #### [facility] [address] [address] [address] Lori Lombardi HDL NORMAL > or = 60 mg/dl - LOW CARDIOVASCULAR RISK <40 mg/dl - HIGH CARDIOVASCULAR RISK Normal [facility] Comment on above: Performed By: #### D ATBMP #### [facility] [address] [address] [address] Lori Lombardi LDL CALC NORMAL SEE BELOW Normal [facility] Comment on above: Result Comment: <100 mg/dl OPTIMAL 100 - 129 mg/dl NEAR OR ABOVE OPTIMAL 130 - 159 mg/dl BORDERLINE HIGH 160 - 189 mg/dl HIGH >190 mg/dl VERY HIGH Performed By: #### D ATBMP #### [facility] [address] [address] [address] Lori Lombardi Potassium [Moles/Vol] 4.3 mmol/L Normal 3.5-5.1 [facility] Comment on above: Performed By: #### D ATBMP #### [facility] [address] [place] [address] Dr. Lori Lombardi Sodium [Moles/Vol] 140 mmol/L Normal 136-145 [facility] Comment on above: Performed By: #### D ATBMP #### [facility] [address] [place] [address] Dr. Lori Lombardi Triglyceride [Mass/Vol] 66 mg/dL Normal <=150 [facility] Comment on above: Performed By: #### D ATBMP #### [facility] [address] [place] [address] Dr. Lori Lombardi Urea nitrogen [Mass/Vol] 17.0 mg/dL Normal 7.0-18.0 [facility] Comment on above: Performed By: #### D ATBMP #### [facility] [address] [place] [address] Dr. Lori Lombardi Urea nitrogen/Creatinine [Mass ratio] 23.3 mg/mg Normal [facility] Comment on above: Performed By: #### D ATBMP #### [facility] [address] [address] [address] Lori Lombardi VLDL CALC 13.2 mg/dL Normal [facility] Comment on above: Performed By: #### D ATBMP #### [facility] [address] [place] [address] Dr. Lori Lombardi TSHon 08-06-2022 TSH 1.218 uIU/mL Normal 0.358-3.740 [facility] Comment on above: Performed By: #### T #### [facility] [address] [address] [address] Lori Lombardi XR hand RT min 3V*on 021 XR hand RT min 3V* [facility] Other XR hand RT min 3V* [facility] [employer] Other XR hand RT min 3V* [address] [place] [address] [facility] Other XR hand RT min 3V* [place] [address] [facility] Other XR hand RT min 3V* XRay Report [facility] Other XR hand RT min 3V* Signed [facility] Other XR hand RT min 3V* Patient: Vashti Salgado MR#: [id number] [facility] Other XR hand RT min 3V* 54 [facility] Other XR hand RT min 3V* : 1955 Acct:[id number] [facility] Other XR hand RT min 3V* Age/Sex: 66 / F ADM Date: 06/19/21 [facility] Other XR hand RT min 3V* Loc: SOXD Room: Type: REG CLI [facility] Other XR hand RT min 3V* Attending Dr: Xiang Gibbs DO [facility] Other XR hand RT min 3V* Ordering Provider: Xiang Gibbs DO [facility] Other XR hand RT min 3V* Date of Service: 06/19/21 [facility] Other XR hand RT min 3V* XR/XR hand RT min 3V*: Right hand pain [facility] Other XR hand RT min 3V* Copies to: Xiang Gibbs, [facility] Other XR hand RT min 3V* Right hand 06/19/2021. [facility] Other XR hand RT min 3V* CLINICAL DATA: Right second finger pain. No known injury. [facility] Other XR hand RT min 3V* FINDINGS: 3 views of the right hand were obtained. [facility] Other XR hand RT min 3V* No acute fracture or dislocation is identified. Mild degenerative changes are seen. No bony erosion [facility] Other XR hand RT min 3V* or destruction is visualized. No significant soft tissue swelling is noted. [facility] Other XR hand RT min 3V* XR/XR hand RT min 3V* [facility] Other XR hand RT min 3V* IMPRESSION: Mild degenerative changes. No acute bony abnormality. [facility] Other XR hand RT min 3V* Impression dictated by: Ignacio Shearer Jr., M.D.06/19/2021 4:41 PM [facility] Other XR hand RT min 3V* Dictation Location: [place] [address] [facility] Other XR hand RT min 3V* Transcribed By: MARQUIS 06/19/21 1641 [facility] Other XR hand RT min 3V* Dictated By: Ignacio Shearer Jr, MD 06/19/21 1639 [facility] Other XR hand RT min 3V* Signed By: [facility] Other XR hand RT min 3V* 06/19/[address] [facility] [employer] Other Vital Signs Date Time Vital Sign Value Performing Clinician Facility 07-21-2023 14:30-0500 Body height Christophe Ball Other [facility] Other 07-21-2023 14:30-0500 Body mass index (BMI) [Ratio] 20.46 kg/m2 Christophe Ball Other [facility] Other 07-21-2023 14:30-0500 Body weight 57.52 kg Christophe Ball Other [facility] Other 07-21-2023 14:30-0500 Diastolic blood pressure 75 mm[Hg] Christophe Ball Other [facility] Other 07-21-2023 14:30-0500 Respiratory rate 12 /min Christophe Ball Other [facility] Other 07-21-2023 14:30-0500 Systolic blood pressure 114 mm[Hg] Christophe Ball Other [facility] Other 02-13-2023 14:45-0400 Body height Christophe Ball Other [facility] Other 02-13-2023 14:45-0400 Body mass index (BMI) [Ratio] 20.17 kg/m2 Christophe Ball Other [facility] Other 02-13-2023 14:45-0400 Body weight 56.7 kg Christophe Ball Other [facility] Other 02-13-2023 14:45-0400 Diastolic blood pressure 67 mm[Hg] Christophe Ball Other [facility] Other 02-13-2023 14:45-0400 Respiratory rate 12 /min Christophe Ball Other [facility] Other 02-13-2023 14:45-0400 Systolic blood pressure 107 mm[Hg] Christophe Renteria Other [facility] Other 06-19-2021 15:30-0400 Body height Xiang Gibbs Other [facility] Other 06-19-2021 15:30-0400 Body mass index (BMI) [Ratio] 20.54 kg/m2 Xiang Gibbs Other [facility] Other 06-19-2021 15:30-0400 Body weight 57.74 kg Xiang Gibbs Other [facility] Other Encounters Encounter Date Encounter Type Care Provider Facility Start: 03-17-2024 End: 03-17-2024 Departed Referred DO Christophe Renteria Work Phone: [facility] [place] Work Phone: Start: 03-17-2024 End: 03-17-2024 ambulatory DO Christophe Renteria Work Phone: [facility] Work Phone: Start: 03-17-2024 End: 03-17-2024 Patient encounter procedure [facility] Work Phone: Start: 12-23-2023 End: 12-23-2023 ambulatory BILL H ITZKOWITZ Not Available Start: 12-14-2023 End: 12-14-2023 Patient encounter procedure DO Christophe Renteria Work Phone: [facility] Work Phone: Start: 12-14-2023 End: 12-14-2023 ambulatory DO Christophe Renteria Work Phone: [facility] Work Phone: Start: 12-03-2023 End: 12-03-2023 ambulatory BILL H ITZKOWITZ Not Available Start: 12-01-2023 End: 12-01-2023 ambulatory JASON RATLIFF Not Available Start: 11-16-2023 Non-patient / Non-visit DO Jose L Renteria Work Phone: [facility] [employer] Work Phone: Start: 07-27-2023 End: 07-27-2023 ambulatory Christophe Renteria Other [employer] Other Start: 07-27-2023 Telephone encounter Christophe Renteria FP [facility] Start: 07-21-2023 End: 07-21-2023 ambulatory Christophe Renteria Other [employer] Other Start: 07-21-2023 Patient encounter procedure Christophe Renteria [facility] Start: 02-13-2023 End: 02-13-2023 ambulatory Christophe Renteria Other [employer] Other Start: 02-13-2023 Office outpatient vi sit 15 minutes Christophe Renteria [facility] Start: 02-02-2023 End: 02-02-2023 ambulatory Christophe Renteria Other [employer] Other Start: 02-02-2023 Telephone encounter Christophe ANDRADE [facility] Start: 12-10-2022 End: 12-10-2022 ambulatory DO Christophe Dexter Work Phone: [facility] Work Phone: Start: 12-10-2022 End: 12-10-2022 Patient encounter procedure DO Christophe Renteria Work Phone: [facility] Work Phone: Start: 08-06-2022 End: 08-07-[address] CHRISTOPHE RENTERIA Facility:[facility] Start: 08-06-2022 End: 08-07-[address] GRANT LISTED REQUEST Facility:[facility] Start: 07-14-2022 Adult health examination Christophe Renteria Other [facility] Other Start: 06-19-2021 End: 06-19-2021 ambulatory Xiang Gibbs Other [facility] [employer] Other Start: 06-19-2021 Office outpatient vi sit 15 minutes [facility] Procedures Date Procedure Procedure Detail Performing Clinician Start: 12-14-2023 Screening mammograph y of bilateral breasts DO Christophe Renteria Work Phone: Start: 12-10-2022 Dual energy X-ray absorptiometry DO Christophe Renteria Work Phone: Start: 12-10-2022 Screening mammograph y of bilateral breasts DO Christophe Renteria Work Phone: Start: 02-21-2015 General examination of patient Christophe Renteria Other Depression screening Marimar Renteria Other Plan of Treatment Date Care Activity Detail Author Start: 03-18-2024 Bacteria identified in Urine by Culture [facility] Start: 03-17-2024 Bacteria identified in Urine by Culture [facility] Diagnostic radiograp hy of abdomen [facility] Immunizations Immunization Date Immunization Notes Care Provider Fa frederick 04-15-2023 influenza, injectabl e, quadrivalent, preservative free Christophe Renteria Other [facility] 07-14-2022 Prevnar 20 Christophe Renteria Other [facility] 03-30-2020 influenza virus vaccine, split virus (incl. purified surface antigen) Christophe Renteria Other [facility] [employer] Other 03-30-2020 influenza virus vaccine, unspecified formulation DO Christophe Renteria Work Phone: [facility] 05-05-2018 influenza virus vaccine, split virus (incl. purified surface antigen) Christophe Renteria Other [facility] [employer] Other 05-05-2018 influenza virus vaccine, unspecified formulation DO Christophe Renteria Work Phone: [facility] 04-08-2017 influenza virus vaccine, split virus (incl. purified surface antigen) Christophe Renteria Other [facility] Other 04-08-2017 influenza virus vaccine, unspecified formulation DO Christophe Renteria Work Phone: [facility] 04-18-2016 tetanus and diphther ia toxoids, adsorbed, preservative free, for adult use (5 Lf of tetanus toxoid and 2 Lf of diphtheria toxoid) Christophe Renteria Other [facility] 04-20-2013 tetanus and diphther ia toxoids, adsorbed, preservative free, for adult use (5 Lf of tetanus toxoid and 2 Lf of diphtheria toxoid) Christophe Renteria Other [facility] pneumococcal Conjuga te, unspecified formulation; Translations: [Need for prophylactic vaccination against Streptococcus pneumoniae (pneumococcus)] Christophe Renteria Other [facility] Other Fluzone Quadrivalent 0.5 ML; Translations: [Fluzone Quadrivalent 0.5 ML] Xiang Gibbs Other [facility] [employer] Other Payers Date Payer Category Payer Medicare [id number] 1957 Self-pay 1957 Unknown [id number] 1955 Unknown [id number] 1955 Unknown [id number] 1957 Unknown [id number] 1957 Unknown [id number] Private Health Insurance [facility] [id number] Unknown [id number] Unknown [id number] Unknown [id number] Unknown [id number] Social History Date Type Detail Facility Unknown if ever smoked [facility] Other Sex Assigned At Sex Assigned At Bir th [facility] Other Start: 05-28-2019 End: 03-17-2024 Tobacco smoking status NHIS Never smoked tobacco (finding) [facility] Start: 1955 Sex Assigned At Female F [facility] Evaluation note 07-21-2023 Note Date & Type [...] exercises. Continue Bisphosphonates, will review hx DEXA qoy Quidelines recommend 5 years on Bisphosphonate followed by [...] (ICD-10 - Z12.11) Referral for screening colonoscopy [facility] Other Evaluation note 02-13-2023 Note Date & Type Note Facility 02-13-2023 Evaluation note Encounter Date Diagnosis Assessment Notes Jan, Lateral epicondylitis of right elbow (ICD-10 - M77.11) Handouts for stretching exercise. Tennis elbow sleeve suggested. Ice/heat and Voltaren Gel. No improvement: OT/PT, Orthopedic referral [facility] Other Evaluation note 06-19-2021 Note Date & [...] as documented in the electronic medical record. [facility] Other Evaluation note Note Date & Type Note Facility Evaluation note No assessment information availa ble [facility] Work Phone: Evaluation note Note Date & Type Note Facility Evaluation note No Information [employer] Other Evaluation note Note Date & Type Note Facility Evaluation note Diagnosis Onset Date Hematuria acute [facility] Work Phone: History general Narrative - Reported Note Date & Type Note Facility History general Narrative - Reported Type Medical History osteoporosis Surgical History hemorrhoidectomy Surgical History breast biopsy [facility] Other History general Narrative - Reported Note Date & Type Note Facility History general Narrative - Reported Type Medical History osteoporosis Medical History 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 hemorrhage Medical History Acquired autoimmune hypothyroidi sm Surgical History hemorrhoidectomy Surgical History breast biopsy Surgical History COLONOSCOPY 2012 Surgical History EGD 2012 Hospitalization History SEE SURGICAL HX [employer] [facility] [employer] Other Reason for referral (narrative) Note Date & Type Note Facility Reason for referral (narrative) Diagnosis 1 Colon cancer screeni ng (Z12.11) Referral Organization [facility] Dexter Torres C romain Referring Provider First Name Christophe Referring Provider Last Name Dexter Referring Provider Specialty Internal Medicine Referred Organization [facility] Referred Provider Bill Solis Referred Address [address] [place], [place],[address] Referred Provider Specialty Surgery Referral Priority Routine General Notes Mrs. Salgado is an asymptomatic, low risk patient being referred for a screening colonoscopy. Her last colonoscopy was in 2012. She denies change in appetite, weight or bowel habits. She denies heartburn or dysphagia. She denies abdominal pain, melena or hematochezia. [facility] Other Summary Purpose Family History No Family History Records Found Relationship Condition Age at Onset Recorded Date/T pat father Unknown Not Specified Heart disease Unknown Unknown Relationship Condition Age at Onset Recorded Date/T pat father Unknown mother Heart disease Unknown Unknown Advance Directives No Advanced Directives Records Found Advance Directive Response Recorded Date/ Time Advance Directives No September 12:20pm Advance Directive Response Recorded Date/ Time Advance Directives No March 17 1:34pm Chief Complaint and Reason for Visit Chief Complaint Z12.31 Z13.820 Z78.0 Chief Complaint Amb Documentation Z12.31 Z13.820 Z78.0 Chief Complaint urine sample Reason for Visit Hematuria Chief Complaint urine sample R31.9 Reason for Visit Hematuria Additional Source Comments REASON FOR VISIT (unrecogniz ed section and content) Right Hand [facility] results INFORMATION SOURCE (unrecogn ized section and content) DATE CREATED AUTHOR 08/13/2022 [facility] DATE CREATED AUTHOR AUTHOR'S ORGANIZ ATION 12/25/2023 [facility] EPIC DATE CREATED AUTHOR AUTHOR'S ORGANIZ ATION 03/20/2024 [facility] Care Teams (unrecognized sec tion and content) Team Status: Active Member Role Status Dates Christophe Renteria , DO Primary Care Provider Active Team Status: Inactive Member Role Status Dates Christophe Renteria , Primary Care Provider Active Start: March 17, 2024 End: March 17, 2024 Gracie Myers MD Attending Provider Active St art: March 17, 2024 End: March 17, 2024 Team Status: Active Member Role Status Dates Christophe Renteria , Primary Care Provider Active Start: November 16, 2023 KALYANI Kisney Attending Provider Active Start : November 16, 2023 Team Status: Inactive Member Role Status Dates Christophe Renteria , Primary Care Provider Active Start: December 14, 2023 End: December 14, 2023 Referral Self Attending Provider Active Start: A prifabrice 2023 End: December 14, 2023 Team Status: Inactive Member Role Status Dates Christophe Renteria , Primary Care Provider Active Syeda Moreno DO [...] BE BASED ON THE PRIMARY CLINICAL RECORDS. [facility] [employer] provides no warranty or guarantee of the accuracy or completeness of information in this document.
== END 2024-03-26 08:29 | disposition home or self-care (01) ==
LOC: CT 08:29
PROVIDERS: PCP Internal Medicine; Visit Provider Internal Medicine
DX: R31.0 Gross hematuria (principal)
CPT/HCPCS: 74177; Q9967

== ENCOUNTER 2024-07-30 09:36 | Outpatient (OUT) | payer MEDICARE, OTHER, SELFPAY ==
--- OUTSIDE RECORDS SUMMARY | 2024-07-30 09:38 | XMS_ITS | CCD ---
Author Organization [facility] CliniSyct Care Team Providers Care Donor Recruiter Name Role Phone BernieXiang Unavailable REQUEST, NONE LISTED Admitting Unavaila ble REQUEST, DR GRANT LISTED Attending Unavaila ble DEXTER, DR GREWAL Primary Care Unavailable REQUEST, DR GRANT LISTED Consulting Unavaila ble BALL, DR GREWAL Admitting Unavailable DEXTER, DR GREWAL Attending Unavailable DEXTER, DR GREWAL Primary Care Unavailable DEXTER, DR GREWAL Consulting Unavailable DO Christophe Renteria Primary Care Provider [phone] DO Syeda Moreno Attending Provider [phone] Christophe Renteria Unavailable DO Christophe Renteria Primary Care Provider Self, Referral Attending Provider Unavailable DO Christophe Renteria Primary Care Provider [phone] MD Gracie Myers Attending Provider Gracie Myers Admitting Unavailable Gracie Myers Attending Unavailable Christophe Renteria Primary Care Unavailable Self, Referral Admitting Unavailable Self, Referral Attending Unavailable Christophe Renteria Primary Care Unavailable Christophe Renteria MD Primary Care Provider JASON RATLIFF Attending Unavailable BILL SOLIS Attending Unavailable BILL SOLIS Attending Unavailable DESTINEE BANSAL Attending Unavailable DESTINEE BANSAL Referring Unavailable SYEDA MORENO Attending Unavailable Medications Current Medications Medication Drug Class(es) Dates Sig (Normalized) Sig (Original) alendronic acid 70 mg oral tablet (13 sources) Bisphosphonate Start: 11-16-2023 Alendronate Active 0 .ROUTE .COMPLEX November 16, 2023 1:56pm TAKE 1 TABLET WEEKLY WITH A FULL GLASS OF WATER AND AVOID LAYING FLAT OR EATING FOR 30 MINUTES Start: 03-08-2023 End: 11-16-2023 alendronate (Fosamax) 70 MG tablet TAKE 1 TABLET WEEKLY WITH A FULL GLASS OF WATER AND AVOID LAYING FLAT OR EATING FOR 30 MINUTES 03/08/2023 Active calcium carbonate 1500 mg / cholecalciferol 200 unt oral tablet (3 sources) Vitamin D Calcium Carb-Cholecalciferol 600-200 MG-UNIT tablet 1 (one) time each day at the same time. Active 1 ml denosumab 60 mg/ml prefilled syringe (3 sources) RANK Ligand Inhibitor Prolia 60 MG/ML Subcutaneous Active diclofenac sodium 0.01 mg/mg topical gel (3 sources) Nonsteroidal Anti-inflammatory Drug Start: 021 Voltaren 1 % apply 1-2 grams to affected area Transdermal BID PRN for 30 days Jun, Active famotidine 20 mg oral tablet (15 sources) Histamine-2 Receptor Antagonist Start: 023 take 20 mg by mouth twice daily Famotidine Active 20 MG PO Twice daily 180 90 February 29, 2024 8:27am Start: 05-28-2019 End: 02-29-2024 take 20 mg by mouth once daily Famotidine Discontinued 20 MG PO Daily 90 90 February 09, 2024 1:16pm February 29, 2024 8:28am ibuprofen 800 mg oral tablet (6 sources) Nonsteroidal Anti-inflammatory Drug take 1 tablet by mouth every eight hours at mealtime as needed ibuprofen 800 MG tablet 1 tablet with food or milk as needed Orally every 8 hrs prn Active take 1 tablet by moriah th three times daily at mealtime as needed Ibuprofen 800 MG 1 tablet with food or milk as needed Orally Three times a day Active levothyroxine sodium 0.075 mg oral tablet (12 sources) l-Thyroxine Start: 05-28-2019 take 1 tablet by mouth once daily levothyroxine (Synthroid, Levoxyl) 75 MCG tablet TAKE 1 TABLET BY MOUTH EVERY DAY ON EMPTY STOMACH 04/24/2023 Active take 1 tablet by mouth once zaina [...] a day for 30 day(s) Jun, Active methylPREDNISolone (3 sources) Corticosteroid Start: 04-20-2024 methylPREDNISolone (Medrol Dospak) 4 MG tablets Indications: Plantar fasciitis of right foot , Contusion of right foot, initial encounter As directed 21 tablet 04/20/2024 Active sodium fluoride 0.011 mg/mg toothpaste (3 sources) Start: 12-17-2022 Sodium Fluoride 5000 PPM 1.1 % paste BRUSH TEETH WITH PEA SIZED AMOUNT TWO TO THREE TIMES DAILY 12/17/2022 Active Completed/Discontinued Medications Medication Drug Class(es) Dates [...] [Dizziness and giddiness] 05-28-2019 Episodic Esophageal disorders (9 sources) Esophageal reflux finding; Translations: [Esophageal reflux] Onset: 10-19-2013 12-03-2023 Chronic Genitourinary symptoms and ill-defined conditions (6 [...] conditions (not mental disorders or infectious disease) (12 sources) Encounter for screening mammogram for malignant neoplasm of breast; Translations: [Encounter for screening for malignant neoplasm of colon] Onset: 12-03-2023 Episodic Other upper respiratory infections (6 sources) Acute maxillary sinusitis; Translations: [Acute recurrent maxillary sinusitis] Onset: 02-21-2015 Resolved: 05-25-2020 Episodic Residual codes; unclassified (4 sources) Left against medical advice; Translations: [Procedure and treatment not carried out because of patient's decision for other reasons] 05-28-2019 Episodic Residual codes; unclassified (2 sources) Postmenopausal state; Translations: [Asymptomatic menopausal state] 06-15-2024 Episodic Syncope (4 sources) Syncope; Translations: [Syncope [...] Test Name Value Interpretation Reference Range Facility XR CALCANEUS 2 VIEWS RIGHTon 04-20-2024 XR CALCANEUS 2 VIEWS RIGHT EXAM: XR - RT OS CALCIS HEEL MIN 2 VIEWS REASON FOR STUDY: Right heel pain COMPARISON: None FINDINGS: 2 views of the calcaneus The calcaneus is grossly intact. No visible fracture. Calcaneal angle appears normal and there is no posterior fluid in the fat pad. IMPRESSION: No evidence for calcaneal fracture Dictated on: 04/20/2024 1:12 PM This report has been electronically signed and approved by the interpreting Radiologist. Electronically Signed Robb Graham D.O. 2024-04-20 13:13:35 Normal Not Available Basophils Auto (Bld) [#/Vol] on 03-17-2024 Basophils (Bld) [#/Vol] 0.1 10 3/uL 0.0-0.1 [facility] Basophils/100 WBC Auto (Bld) on 03-17-2024 Basophils/100 WBC (Bld) 0.7 % 0.2-2.0 [facility] Eosinophils/100 WBC Auto (Bl d)on 03-17-2024 Eosinophils/100 WBC (Bld) 1.1 % 0.9-7.0 [facility] Erythrocyte distribution wid th Auto (RBC) [Ratio]on 03-17-2024 Erythrocyte distribution width (RBC) [Ratio] 11.9 % 11.0-15.0 [facility] Estimated glomerular filtrat ion rate (GFR) non- Americanon 03-17-2024 GFR/1.73 sq M.predicted among non-blacks MDRD (S/P/Bld) [Vol rate/Area] 57 mL/min/{1.73_m2} Low >=60 [facility] Hematocrit Auto (Bld) [Volum e fraction]on 03-17-2024 Hematocrit (Bld) [Volume fraction] 39.5 % 36.0-48.0 [facility] Hemoglobin [Mass/volume] in Bloodon 03-17-2024 Hemoglobin (Bld) [Mass/Vol] 13.3 g/dL 12.0-16.0 [facility] Laboratory - Chemistry and C hemistry - challengeon 03-17-2024 Calcium [Mass/Vol] 9.3 mg/dL 8.5-10.1 [facility] Chloride [Moles/Vol] 104 mmol/L 98-107 [facility] CO2 [Moles/Vol] 28.7 mmol/L 21.0-32.0 [facility] Creatinine [Mass/Vol] 0.98 mg/dL 0.55-1.02 [facility] GFR/1.73 sq M.predicted MDRD (S/P/Bld) [Vol rate/Area] mL/min/{1.73_m2} >=60 [facility] Glucose [Mass/Vol] 100 mg/dL 74-106 [facility] Potassium [Moles/Vol] 4.0 mmol/L 3.5-5.1 [facility] Sodium [Moles/Vol] 141 mmol/L 136-145 [facility] Urea nitrogen [Mass/Vol] 14.0 mg/dL 7.0-18.0 [facility] Urea nitrogen/Creatinine [Mass ratio] 14.3 mg/mg [facility] Laboratory - Hematology and Cell countson 03-17-2024 Immature granulocytes/100 WBC (Bld) 0.1 % 0.0-0.5 [facility] Leukocytes [#/volume] correc octaviano for nucleated erythrocytes in Blood by Automated counon 03-17-2024 WBC corrected for nucl RBC Auto (Bld) [#/Vol] 7.2 10 3/uL 4.0-11.0 [facility] Lymphocytes Auto (Bld) [#/Vo l]on 03-17-2024 Lymphocytes (Bld) [#/Vol] 1.5 10 3/uL 1.2-3.8 [facility] Lymphocytes/100 WBC Auto (Bl d)on 03-17-2024 Lymphocytes/100 WBC (Bld) 20.3 % Low 20.5-60.0 [facility] MCH Auto (RBC) [Entitic mass ]on 03-17-2024 MCH (RBC) [Entitic mass] 31.9 pg 26.7-34.0 [facility] MCHC Auto (RBC) [Mass/Vol]on 03-17-2024 MCHC (RBC) [Mass/Vol] 33.7 g/dL 29.9-35.2 [facility] MCV Auto (RBC) [Entitic vol] on 03-17-2024 MCV (RBC) [Entitic vol] 94.7 fL 81.0-99.0 [facility] Monocytes Auto (Bld) [#/Vol] on 03-17-2024 Monocytes (Bld) [#/Vol] 0.4 10 3/uL 0.3-0.8 [facility] Monocytes/100 WBC Auto (Bld) on 03-17-2024 Monocytes/100 WBC (Bld) 5.6 % 1.7-12.0 [facility] Neutrophils Auto (Bld) [#/Vo l]on 03-17-2024 Neutrophils (Bld) [#/Vol] 5.2 10 3/uL 1.4-6.5 [facility] Neutrophils/100 WBC Auto (Bl d)on 03-17-2024 Neutrophils/100 WBC (Bld) 72.2 % 43.0-75.0 [facility] No Panel Informationon 03-17 Eosinophils # (Auto) 0.1 10 3/uL 0.0-0.7 [facility] Immature Granulocyte # (Auto) 0.01 10 3/uL 0.00-0.03 [facility] Platelet mean volume Auto (B ld) [Entitic vol]on 03-17-2024 Platelet mean volume (Bld) [Entitic vol] 9.5 fL 9.5-13.5 [facility] Platelets Auto (Bld) [#/Vol] on 03-17-2024 Platelets (Bld) [#/Vol] 233 10 3/uL 150-450 [facility] RBC Auto (Bld) [#/Vol]on RBC (Bld) [#/Vol] 4.17 10 6/uL Low 4.20-5.40 [facility] Serum or plasma anion gap de terminationon 03-17-2024 Anion gap [Moles/Vol] 12.3 mmol/L [facility] Urine Cultureon 03-17-2024 Bacteria identified Cx Nom (U) No Growth 2 Days PERFORMED BY: [place] [address] PATHOLOGIST [employer] PETR ZHANG M.D. Normal [facility] Comment on above: Performed By: #### C UU #### [address] MM screening mammo BI w/CADo n 12-14-2023 MM screening mammo BI w/CAD [facility] [place] [address] Mammography Report Signed Patient: Vashti Salgado MR#: [id number] 52 : 1955 Acct:[id number] Age/Sex: 68 / F ADM Date: 12/14/23 Loc: [place] Room: [facility] Attending Dr: Referral Self Copies to: [...] Sveta Mora M.D.12/14/2023 3:46 PM Dictation Location: [facility] Transcribed By: MARQUIS 12/14/23 154 Dictated By: Sveta Mora MD 12/14/23 154 Signed By: 12/14/23 1546 Normal [facility] CBC AUTO DIFFon 08-06-2022 BASO # 0.1 103/ul Normal 0.0-0.1 [facility] Comment on above: Performed By: #### D ATCBC #### [facility] [address] [place] [address] Dr. Lori Lombardi Basophils/100 WBC (Bld) 0.8 % Normal 0.2-2.0 [facility] Comment on above: Performed By: #### D ATCBC #### [facility] [address] [address] [address] Lori Lombardi EO # 0.1 103/ul Normal 0.0-0.7 [facility] Comment on above: Performed By: #### D ATCBC #### [facility] [address] [address] [address] Lori Lombardi Eosinophils/100 WBC (Bld) 1.3 % Normal 0.9-7.0 [facility] Comment on above: Performed By: #### D ATCBC #### [facility] [address] [address] [address] Lori Lombardi Erythrocyte distribution width (RBC) [Ratio] 11.9 % Normal 11.0-15.0 [facility] Comment on above: Performed By: #### D ATCBC #### [facility] [address] [address] [address] Lori Lombardi Hematocrit (Bld) [Volume fraction] 41.5 % Normal 36.0-48.0 [facility] Comment on above: Performed By: #### D ATCBC #### [facility] [address] [address] [address] Lori Lombardi Hemoglobin (Bld) [Mass/Vol] 14.0 g/dL Normal 12.0-16.0 [facility] Comment on above: Performed By: #### D ATCBC #### [facility] [address] [place] [address] Dr. Lori Lombardi IG # 0.01 10e3/ul Normal 0.00-0.03 [facility] Comment on above: Performed By: #### D ATCBC #### [facility] [address] [place] [address] Dr. Lori Lombardi IG % 0.2 % Normal 0.0-0.5 [facility] Comment on above: Performed By: #### D ATCBC #### [facility] [address] [place] [address] Dr. Lori Lombardi LYMPH # 1.3 103/ul Normal 1.2-3.8 [facility] Comment on above: Performed By: #### D ATCBC #### [facility] [address] [place] [address] Dr. Lori Lombardi Lymphocytes/100 WBC (Bld) 19.7 % Critically low 20.5-60.0 [facility] Comment on above: Performed By: #### D ATCBC #### [facility] [address] [address] [address] Lori Lombardi MCH (RBC) [Entitic mass] 31.7 pg Normal 26.7-34.0 [facility] Comment on above: Performed By: #### D ATCBC #### [facility] [address] [place] [address] Dr. Lori Lombardi MCHC (RBC) [Mass/Vol] 33.7 g/dL Normal 29.9-35.2 [facility] Comment on above: Performed By: #### D ATCBC #### [facility] [address] [place] [address] Dr. Lori Lombardi MCV (RBC) [Entitic vol] 94.1 fL Normal 81.0-99.0 [facility] Comment on above: Performed By: #### D ATCBC #### [facility] [address] [place] [address] Dr. Lori Lombardi MONO # 0.4 103/ul Normal 0.3-0.8 [facility] Comment on above: Performed By: #### D ATCBC #### [facility] [address] [place] [address] Dr. Lori Lombardi Monocytes/100 WBC (Bld) 6.0 % Normal 1.7-12.0 [facility] Comment on above: Performed By: #### D ATCBC #### [facility] [address] [place] [address] Dr. Lori Lombardi NEUT # 4.6 103/ul Normal 1.4-6.5 [facility] Comment on above: Performed By: #### D ATCBC #### [facility] [address] [place] [address] Dr. Lori Lombardi Neutrophils/100 WBC (Bld) 72.0 % Normal 43.0-75.0 [facility] Comment on above: Performed By: #### D ATCBC #### [facility] [address] [place] [address] Dr. Lori Lombardi Platelet mean volume (Bld) [Entitic vol] 9.4 fL Critically low 9.5-13.5 [facility] Comment on above: Performed By: #### D ATCBC #### [facility] [address] [place] [address] Dr. Lori Lombardi PLT 218 103/ul Normal 150-450 [facility] Comment on above: Performed By: #### D ATCBC #### [facility] [address] [place] [address] Dr. Lori Lombardi RBC 4.41 106/ul Normal 4.20-5.40 [facility] Comment on above: Performed By: #### D ATCBC #### [facility] [address] [address] [address] Lori Lombardi WBC 6.3 103/ul Normal 4.0-11.0 [facility] Comment on above: Performed By: #### D ATCBC #### [facility] [address] [address] [address] Lori Lombardi ARDEN- BMP WITH LIPIDon 2021 Anion gap [Moles/Vol] 10.3 mmol/L Normal [facility] Comment on above: Performed By: #### D ATBMP #### [facility] [address] [address] [address] Lori Lombardi Calcium [Mass/Vol] 9.2 mg/dL Normal 8.5-10.1 [facility] Comment on above: Performed By: #### D ATBMP #### [facility] [address] [address] [address] Lori Lombardi Chloride [Moles/Vol] 102 mmol/L Normal 98-107 [facility] Comment on above: Performed By: #### D ATBMP #### [facility] [address] [place] [address] Dr. Lori Lombardi Cholesterol [Mass/Vol] 181 mg/dL Normal <=200 [facility] Comment on above: Performed By: #### D ATBMP #### [facility] [address] [address] [address] Lori Lombardi Cholesterol in HDL [Mass/Vol] 79 mg/dL Critically high 40-60 [facility] Comment on above: Performed By: #### D ATBMP #### [facility] [address] [address] [address] Lori Lombardi Cholesterol in LDL [Mass/Vol] 88.8 mg/dL Normal [facility] Comment on above: Performed By: #### D ATBMP #### [facility] [address] [address] [address] Lori Lombardi CO2 [Moles/Vol] 32.0 mmol/L Normal 21.0-32.0 [facility] Comment on above: Performed By: #### D ATBMP #### [facility] [address] [address] [address] Lori Lombardi Creatinine [Mass/Vol] 0.73 mg/dL Normal 0.55-1.02 [facility] Comment on above: Performed By: #### D ATBMP #### [facility] [address] [address] [address] Lori Lombardi EGFR-AF GUINEAN >60 Normal >=60 [facility] Comment on above: Performed By: #### D ATBMP #### [facility] [address] [address] [address] Lori Lombardi EGFR-NON AF GUINEAN >60 Normal >=60 [facility] Comment on above: Performed By: #### D ATBMP #### [facility] [address] [address] [address] Lori Lombardi Glucose [Mass/Vol] 88 mg/dL Normal 74-106 [facility] Comment on above: Performed By: #### D ATBMP #### [facility] [address] [address] [address] Lori Lombardi HDL NORMAL > or = 60 mg/dl - LOW CARDIOVASCULAR RISK <40 mg/dl - HIGH CARDIOVASCULAR RISK Normal [facility] Comment on above: Performed By: #### D ATBMP #### [facility] [address] [address] [address] Lori Lombardi LDL CALC NORMAL SEE BELOW Normal [facility] Comment on above: Result Comment: <100 mg/dl OPTIMAL 100 - 129 mg/dl NEAR OR ABOVE OPTIMAL 130 - 159 mg/dl BORDERLINE HIGH 160 - 189 mg/dl HIGH >190 mg/dl VERY HIGH Performed By: #### D ATBMP #### [facility] [address] [address] [address] Lori Lombardi Potassium [Moles/Vol] 4.3 mmol/L Normal 3.5-5.1 [facility] Comment on above: Performed By: #### D ATBMP #### [facility] [address] [address] [address] Lori Lombardi Sodium [Moles/Vol] 140 mmol/L Normal 136-145 [facility] Comment on above: Performed By: #### D ATBMP #### [facility] [address] [address] [address] Lori Lombardi Triglyceride [Mass/Vol] 66 mg/dL Normal <=150 [facility] Comment on above: Performed By: #### D ATBMP #### [facility] [address] [address] [address] Lori Lombardi Urea nitrogen [Mass/Vol] 17.0 mg/dL Normal 7.0-18.0 [facility] Comment on above: Performed By: #### D ATBMP #### [facility] [address] [address] [address] Lori Lombardi Urea nitrogen/Creatinine [Mass ratio] 23.3 mg/mg Normal [facility] Comment on above: Performed By: #### D ATBMP #### [facility] [address] [address] [address] Lori Lombardi VLDL CALC 13.2 mg/dL Normal [facility] Comment on above: Performed By: #### D ATBMP #### [facility] [address] [address] [address] Lori Lombardi TSHon 08-06-2022 TSH 1.218 uIU/mL Normal 0.358-3.740 [facility] Comment on above: Performed By: #### T #### [facility] [address] [address] [address] Lori Lombardi XR hand RT min 3V*on 021 XR hand RT min 3V* [facility] [employer] Other XR hand RT min 3V* [facility] [employer] Other XR hand RT min 3V* [address] [place] [address] [employer] Other XR hand RT min 3V* [address] [employer] Other XR hand RT min 3V* XRay Report [facility] Other XR hand RT min 3V* Signed [facility] Other XR hand RT min 3V* Patient: Vashti Salgado MR#: [id number] [facility] Other XR hand RT min 3V* 54 [facility] Other XR hand RT min 3V* : 1955 Acct:[id number] [facility] Other XR hand RT min 3V* Age/Sex: 66 / F ADM Date: 06/19/21 [facility] Other XR hand RT min 3V* Loc: [facility] Room: [facility] Other XR hand RT min 3V* Attending Dr: Xiang Gibbs DO [facility] Other XR hand RT min 3V* Ordering Provider: Xiang Gibbs DO [facility] Other XR hand RT min 3V* Date of Service: 06/19/21 [facility] Other XR hand RT min 3V* XR/XR hand RT min 3V*: Right hand pain [facility] Other XR hand RT min 3V* Copies to: Xiang Gibbs DO [facility] Other XR hand RT min 3V* Right hand 06/19/2021. [facility] Other XR hand RT min 3V* CLINICAL DATA: Right second finger pain. No known injury. [facility] Other XR hand RT min 3V* FINDINGS: 3 views of the right hand were obtained. [facility] Other XR hand RT min 3V* No acute fracture or dislocation is identified. Mild degenerative changes are seen. No bony erosion [facility] Other XR hand RT min 3V* or destruction is visualized. No significant soft tissue swelling is noted. [facility] Other XR hand RT min 3V* XR/XR hand RT min 3V* [facility] Other XR hand RT min 3V* IMPRESSION: Mild degenerative changes. No acute bony abnormality. [facility] Other XR hand RT min 3V* Impression dictated by: Ignacio Shearer Jr., M.D.06/19/2021 4:41 PM [facility] Other XR hand RT min 3V* Dictation Location: [place] [address] [facility] Other XR hand RT min 3V* Transcribed By: MARQUIS 06/19/21 [facility] Other XR hand RT min 3V* Dictated By: Ignacio Shearer Jr, MD 06/19/21 [facility] Other XR hand RT min 3V* Signed By: [facility] Other XR hand RT min 3V* 06/19/[address] [place] [address] [employer] Other Vital Signs Date Time Vital Sign Value Performing Clinician Facility 06-16-2024 15:56-0400 Body height 167.6 cm [employer] DO Work Phone: [facility] 06-16-2024 15:56-0400 Body mass index (BMI) [Ratio] 19.53 kg/m2 [employer] DO Work Phone: [facility] 06-16-2024 15:56-0400 Body weight 54.88 kg [employer] DO Work Phone: [facility] 06-16-2024 15:56-0400 Diastolic blood pressure 72 mm[Hg] [employer] DO Work Phone: [facility] 06-16-2024 15:56-0400 Systolic blood pressure 116 mm[Hg] Syeda Rinkes DO Work Phone: [facility] 07-21-2023 14:30-0500 Body height Christophe Ball Other [facility] Other 07-21-2023 14:30-0500 Body mass index (BMI) [Ratio] 20.46 kg/m2 Christophe Ball Other [facility] Other 07-21-2023 14:30-0500 Body weight 57.52 kg Christophe Ball Other [facility] Other 07-21-2023 14:30-0500 Diastolic blood pressure 75 mm[Hg] Christophe Ball Other [facility] Other 07-21-2023 14:30-0500 Respiratory rate 12 /min Christophe Ball Other [facility] Other 07-21-2023 14:30-0500 Systolic blood pressure 114 mm[Hg] Christophe Ball Other [facility] Other 02-13-2023 14:45-0400 Body height Christophe Ball Other [facility] Other 02-13-2023 14:45-0400 Body mass index (BMI) [Ratio] 20.17 kg/m2 Christophe Ball Other [facility] Other 02-13-2023 14:45-0400 Body weight 56.7 kg Christophe Ball Other [facility] Other 02-13-2023 14:45-0400 Diastolic blood pressure 67 mm[Hg] Christophe Ball Other [facility] Other 02-13-2023 14:45-0400 Respiratory rate 12 /min Christophe Ball Other [facility] Other 02-13-2023 14:45-0400 Systolic blood pressure 107 mm[Hg] Christophe Renteria Other [facility] Other 06-19-2021 15:30-0400 Body height Xiang Gibbs Other [facility] Other 06-19-2021 15:30-0400 Body mass index (BMI) [Ratio] 20.54 kg/m2 Xiang Gibbs Other [facility] Other 06-19-2021 15:30-0400 Body weight 57.74 kg Xiang Gibbs Other [facility] Other Encounters Encounter Date Encounter Type Care Provider Facility Start: 06-16-2024 End: 06-16-2024 ambulatory SYEDA MORENO Not Available Start: 06-16-2024 End: 06-16-2024 Patient encounter status Syedacornelius Moreno DO Work Phone: [facility] Start: 06-16-2024 End: 06-16-2024 Periodic preventive med est patient 65yrs& older Syeda Xander Prietokes DO Work Phone: [facility] Comment on above: Encounter for gyneco logical examination without abnormal finding; Screening for malignant neoplasm of cervix; Encounter for screening mammogram for breast cancer; Screening for osteoporosis; Postmenopausal status, age-related Start: 06-16-2024 End: 06-16-2024 Bamboo flowsheet Syeda Prietokes DO Work Phone: [facility] Start: 06-16-2024 End: 06-16-2024 Bamboo flowsheet Syeda Terrell Rinkes DO Work Phone: [facility] Start: 04-20-2024 End: 04-20-2024 ambulatory DESTINEE BANSAL Not Available Start: 03-31-2024 ambulatory Facility:[facility] Start: 03-17-2024 End: 03-17-2024 Departed Referred DO Christophe Renteria Work Phone: [facility] [place] Work Phone: Start: 03-17-2024 End: 03-17-2024 ambulatory DO Christophe Renteria Work Phone: [facility] Work Phone: Start: 03-17-2024 End: 03-17-2024 Patient encounter procedure [facility] Physician [facility] Work Phone: Start: 12-23-2023 End: 12-23-2023 ambulatory BILL H ITZKOWITZ Not Available Start: 12-14-2023 End: 12-14-2023 Patient encounter procedure DO Christophe Renteria Work Phone: [facility] Work Phone: Start: 12-14-2023 End: 12-14-2023 ambulatory DO Christophe Renteria Work Phone: [facility] Work Phone: Start: 12-03-2023 End: 12-03-2023 ambulatory BILL H ITZKOWITZ Not Available Start: 12-01-2023 End: 12-01-2023 ambulatory JASON RATLIFF Not Available Start: 11-16-2023 Non-patient / Non-visit DO Jose L Renteria Work Phone: [facility] Physician [facility] Work Phone: Start: 07-27-2023 End: 07-27-2023 ambulatory Christophe Renteria Other [facility] Other Start: 07-27-2023 Telephone encounter Christophe Dex[facility] Start: 07-21-2023 End: 07-21-2023 ambulatory Christophe Renteria Other [facility] Other Start: 07-21-2023 Patient encounter procedure Christophe Dexter [facility] Start: 02-13-2023 End: 02-13-2023 ambulatory Christophe Renteria Other [facility] Other Start: 02-13-2023 Office outpatient vi sit 15 minutes Christophe Renteria [facility] Start: 02-02-2023 End: 02-02-2023 ambulatory Christophe Renteria Other [facility] Other Start: 02-02-2023 Telephone encounter Christophe Renteria [facility] Start: 12-10-2022 End: 12-10-2022 ambulatory DO Christophe Renteria Work Phone: [facility] Work Phone: Start: 12-10-2022 End: 12-10-2022 Patient encounter procedure DO Christophe Renteria Work Phone: [facility] Work Phone: Start: 08-06-2022 End: 08-07-[address] CHRISTOPHE RENTERIA Facility:[facility] Start: 08-06-2022 End: 08-07-[address] GRANT LISTED REQUEST Facility:[facility] Start: 07-14-2022 Adult health examination Basilio flash Renteria Other [facility] Other Start: 06-19-2021 End: 06-19-2021 ambulatory Xiang Gibbs Other [facility] Other Start: 06-19-2021 Office outpatient vi sit 15 minutes Xiang Gibbs [facility] Procedures Date Procedure Procedure Detail Performing Clinician Start: 12-25-2023 Colonoscopy Syeda miramontes DO Work Phone: Start: 12-14-2023 Screening mammograph y of bilateral breasts DO Christophe Renteria Work Phone: Start: 12-10-2022 Dual energy X-ray absorptiometry DO Christophe Renteria Work Phone: Start: 12-10-2022 End: 12-10-2022 Screening mammography of bilateral breasts DO Christophe Renteria Work Phone: Start: 02-21-2015 General examination of patient Christophe Renteria Other Depression screening Marimar Renteria Other Plan of Treatment Date Care Activity Detail Author Start: 12-24-2033 Screening for malign ant neoplasm of colon [facility] Start: 04-17-2024 Influenza vaccination Influenza Vacc ine (#1) [facility] Start: 03-18-2024 Bacteria identified in Urine by Culture [facility] Start: 03-17-2024 Bacteria identified in Urine by Culture [facility] Start: 12-11-2023 Screening for malign ant neoplasm of breast Mammogram [facility] Start: 1955 Screening for malign ant neoplasm of colon [facility] DBT Breast - bilater al screening Bilateral screening mammogram with tomosynthesis Imaging Routine Encounter for screening mammogram for breast cancer Ordered: 06/16/2024 [facility] Comment on above: Ordered: 06/16/2024 Diagnostic radiograp hy of abdomen [facility] DXA Skeletal system Views for bone density DEXA bone density Imaging Routine Screening for osteoporosis Postmenopausal status, age-related Ordered: 06/16/2024 [facility] Comment on above: Ordered: 06/16/2024 SENDOUT TEST MISCELLANEOUS [facility] SENDOUT TEST MISCELLANEOUS [facility] Lab Routine Screening for malignant neoplasm of cervix Ordered: 06/16/2024 [facility] Work Phone: Comment on above: Ordered: 06/16/2024 [facility] Immunizations Immunization Date Immunization Notes Care Provider Miguel mack 05-05-2024 influenza virus vaccine, unspecified formulation Syeda Moreno DO Work Phone: [facility] 04-15-2023 influenza, injectabl e, quadrivalent, preservative free Christophe Renteria Other [facility] 07-14-2022 Prevnar 20 Christophe Renteria Other [facility] 03-30-2020 influenza virus vaccine, split virus (incl. purified surface antigen) Christophe Renteria Other [facility] Other 03-30-2020 influenza virus vaccine, unspecified formulation DO Christophe Renteria Work Phone: [facility] 05-05-2018 influenza virus vaccine, split virus (incl. purified surface antigen) Christophe Renteria Other [facility] Other 05-05-2018 influenza virus vaccine, unspecified formulation DO Christophe Renteria Work Phone: [facility] 04-08-2017 influenza virus vaccine, split virus (incl. purified surface antigen) Christophe Renteria Other [facility] Other 04-08-2017 influenza virus vaccine, unspecified formulation DO [employer] Work Phone: [facility] 04-18-2016 tetanus and diphther ia toxoids, adsorbed, preservative free, for adult use (5 Lf of tetanus toxoid and 2 Lf of diphtheria toxoid) Christophe Renteria Other [facility] 04-20-2013 tetanus and diphther ia toxoids, adsorbed, preservative free, for adult use (5 Lf of tetanus toxoid and 2 Lf of diphtheria toxoid) Christophe Renteria Other [facility] pneumococcal Conjuga te, unspecified formulation; Translations: [Need for prophylactic vaccination against Streptococcus pneumoniae (pneumococcus)] Christophe Renteria Other [facility] [employer] Other Fluzone Quadrivalent 0.5 ML; Translations: [Fluzone Quadrivalent 0.5 ML] Xiang Gibbs Other [facility] [employer] Other Payers Date Payer Category Payer Private Health Insurance GENERIC COMMERCIAL [id number] 2022 Medicare MEDICARE [id number] 1957 Medicare [id number] 1959 Self-pay 1959 Unknown [id number] 1957 Unknown [id number]. [id number] 1957 Unknown [id number] .[id number]. 1258 1957 Unknown [id number] .[id number]. 1258 1957 Unknown [id number] .[id number]. 9 1957 Unknown [id number] .[id number]. 1258 1957 Unknown [id number] .[id number]. 125 1957 Unknown [id number] .[id number]. 1259 Private Health Insurance [facility] [id number] Unknown [id number] Unknown [id number] .[id number]. 593 Unknown [id number] 531 Unknown [id number] 531 Social History Date Type Detail Facility Unknown if ever smoked [facility] [employer] Other Start: 04-20-2024 Sex Assigned At N [facility] Other Start: 05-28-2019 End: 04-29-2023 Tobacco smoking status NHIS Never smoked tobacco (finding) [facility] Start: 1955 Sex Assigned At Female F [facility] Start: 06-15-2024 End: 06-16-2024 Alcoholic beverage intake Current drinker of alcohol (finding) [facility] Start: 04-20-2024 History of Social function [facility] Start: 04-29-2023 Alcohol Comment Alcohol: 1 or 2 drinks on a typical day / 2 to 4 times a month. Caffeine: 1-2 cups/day soda [facility] Start: 1955 Sex assigned at Not on file N [facility] Start: 10-29-2022 Gender identity Identifies as female gender (finding) [facility] Clinical Notes 06-19-2021 to 06-16-2024 Syeda Moreno DO - 06/16/2024 3:45 PM EDT Note Date & Type Note Facility 06-16-2024 History of Presen t illness Narrative Images from the original note were not included. Syeda Moreno D.O. Obstetrics and Gynecology Patient: Vashti Salgado : 1955 (69 y.o.) Yearly Wellness Exam Date: 06/16/2024 Reason for Visit - Chief Complaint Patient presents with Gynecologic Exam Denies concerns, Denies bowel/bladder/breast concerns. Denies vaginal bleeding/spotting. Visit Vitals BP 116/72 Ht 5' 6 Wt 121 lb BMI 19.53 kg/m Smoking Status Never BSA 1.6 m No Known Allergies History of Present Illness, Associated Treatments and Results - OB History Para Term AB Living 3 3 2 1 0 2 SAB IAB Ectopic Multiple Live Births 0 0 0 0 2 # Outcome Date GA Lbr Ozzy/2nd Weight Sex Type Anes PTL Lv 3 20w0d FD 2 Term Vag-Spont 1 Term Vag-Spont Obstetric Comments Pap smear 05/07/22 wnl, mammogram 12/10/22 [place]nl[place] [facility] [place] 12/10/22 osteoporosis Review of Systems - General: Chills denies. Allergy/Immunology: Rash Denies. ENT: Denies Difficulty swallowing. Endocrine: Denies Cold intolerance denies. Heat intolerance denied. Respiratory: Denies Chest pain denies. Shortness of breath denies. Breast: Denies Bloody nipple discharge denies. Breast lump denies. Cardiovascular: Denies Chest pain. Gastrointestinal: Abdominal pain denies. Blood in stool denies. Hematology: Easy bruising denies. Prolonged bleeding denies. Women Only: Breast lump denies. Vaginal bleeding between periods is denied. Vaginal discharge/itching denied. Genitourinary: Blood in urine denies. Painful urination denies. Incontinence denies. Skin: Hair changes. Neurologic: Seizures denied. Stroke denies. Psychiatric: Anxiety denies. Depressed mood denies. Medication Documentation Review Audit Reviewed by Sujata Hedrick MA (Torch Brazer) on 06/16/24 at 1554 Medication Order Taking? Sig Documenting Provider Last Dose Status alendronate (Fosamax) 70 MG tablet [id number] No TAKE 1 TABLET WEEKLY WITH A FULL GLASS OF WATER AND AVOID LAYING FLAT OR EATING FOR 30 MINUTES Historical ProviderMD Taking Active Calcium Carb-Cholecalciferol 600-200 MG-UNIT tablet [id number] No 1 (one) time each day at the same time. Historical ProviderMD Taking Active famotidine (Pepcid) 20 MG tablet [id number] No Take 20 mg by mouth in the morning and 20 mg before bedtime. Historical ProviderMD Taking Active ibuprofen 800 MG tablet [id number] No 1 tablet with food or milk as needed Orally every 8 hrs prn Historical ProviderMD Taking Active levothyroxine (Synthroid, Levoxyl) 75 MCG tablet [id number] No TAKE 1 TABLET BY MOUTH EVERY DAY ON EMPTY STOMACH Historical ProviderMD Taking Active methylPREDNISolone (Medrol Dospak) 4 MG tablets [id number] As directed Destinee Bansal, Active Sodium Fluoride 5000 PPM 1.1 % paste [id number] No BRUSH TEETH WITH PEA SIZED AMOUNT TWO TO THREE TIMES DAILY Historical Provider, Taking Active Past Medical History: Diagnosis Date Acid reflux Actinic keratoses Basal cell carcinoma Fibrocystic disease of breast Headache associated with hormonal factors Irregular menstrual cycle x2. 1 stillbirth Squamous cell skin cancer Past Surgical History: Procedure Laterality Date APPENDECTOMY 12/2021 Appendicitis BASAL CELL CARCINOMA EXCISION 2018 upper lip COLONOSCOPY 2014 COLONOSCOPY 12/23/2023 ESOPHAGOGASTRODUODENOSCOPY 12/23/2023 SKIN BIOPSY SKIN CANCER EXCISION Family History Problem Relation Name Age of Onset Stroke Mother No Known Problems Sister No Known Problems Brother 2 brothers, healthy No Known Problems Daughter No Known Problems Son Melanoma Neg Hx Breast cancer Neg Hx Colon cancer Neg Hx Ovarian cancer Neg Hx Physical Exam - General appearance, mentation, extraocular movements, facial strength and movement, hearing, upper and lower extremity strength and tone, sensation to gross testing, coordination, and gait are normal or at baseline unless noted below. General Examination: GENERAL APPEARANCE: alert oriented well developed, well nourished. HEAD: normocephalic atraumatic. EYES: sclera anicteric. EARS: no obvious hearing deficit. SKIN: warm and dry. HEART: regular rate and rhythm. LUNGS: clear to auscultation bilaterally. CHEST: axillary nodes grossly normal. BREASTS: no masses palpable bilaterally, normal nipples bilaterally. ABDOMEN: soft, nontender, nondistended, no masses palpable. BACK: no costovertebral angle tenderness, no obvious scoliosis/kyphosis. FEMALE GENITOURINARY: atrophic vaginal mucosa, cervix absent of lesions, nontender, uterus AV, mobile, ovaries nonpalpable and nontender. EXTREMITIES: no edema. NEUROLOGIC: alert and oriented. PSYCH: cooperative with exam. Diagnoses and all orders for this visit: Encounter for gynecological examination without abnormal finding Screening for malignant neoplasm of cervix - SENDOUT TEST MISCELLANEOUS [facility] Encounter for screening mammogram for breast cancer - Bilateral screening mammogram with tomosynthesis Screening for osteoporosis - DEXA bone density Postmenopausal status, age-related - DEXA bone density Pap, pelvic and breast exam completed. Findings of today's exam discussed with the patient. Continue MSBE. Ca/Vit D recommendations reviewed with the patient. The patient is to contact the office with any changes to her gynecological condition. The patient is to return in 1 year or as needed ICD-10-CM 1. Encounter for gynecological examination without abnormal finding Z01.419 2. Screening for malignant neoplasm of cervix Z12.4 SENDOUT TEST MISCELLANEOUS [facility] 3. Encounter for screening mammogram for breast cancer Z12.31 Bilateral screening mammogram with tomosynthesis 4. Screening for osteoporosis Z13.820 DEXA bone density 5. Postmenopausal status, age-related Z78.0 DEXA bone density documented in this encounter [facility] 07-21-2023 Evaluation note Encounter Date Diagnosis Assessment [...] (ICD-10 - Z12.11) Referral for screening colonoscopy [facility] Other 06-30-2023 Evaluation note* Encounter Date Diagnosis Assessment Notes Treatment Notes Treatment Clinical Notes Jan, Lateral epicondylitis of right elbow (ICD-10 - M77.11) Handouts for stretching exercise. Tennis elbow sleeve suggested. Ice/heat and Voltaren Gel. No improvement: OT/PT, Orthopedic referral [facility] Other [id number] Evaluation note* Encounter Date Diagnosis Assessment Notes Treatment Notes Treatment Clinical Notes Jun, Right hand pain (ICD-10 - [...] reviewed. At this time I would recommend anti-inflammatories with meloxicam as well as Voltaren gel. [...] as documented in the electronic medical record. [facility] Other Evaluation noteNo assessment information available [facility] Work Phone: Evaluation noteNo InformationNort [facility] Other Evaluation note* Diagnosis Onset Date Resolution Status Hematuria acute [facility] Work Phone: Evaluation note* Diagnosis Encounter for gynecological examination without abnormal finding Screening for malignant neoplasm of cervix Screening for malignant neoplasm of the cervix Encounter for screening mammogram for breast cancer Screening for osteoporosis Special screening for osteoporosis Postmenopausal status, age-related [facility] - Reported* Type Description Date Medical History osteoporosis Surgical History hemorrhoidectomy Surgical History breast biopsy [facility] Other History general Narrative - Reported* Type Description Date Medical History osteoporosis Medical History 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 hemorrhage Medical History Acquired autoimmune hypothyroidi sm Surgical History hemorrhoidectomy Surgical History breast biopsy Surgical History COLONOSCOPY 2012 Surgical History EGD 2012 Hospitalization History SEE SURGICAL HX [facility] Other Reason for referral (narrative)* Reason Referral for screeni ng colonoscopy Diagnosis 1 Colon cancer screeni ng (Z12.11) Referral Organization [facility] Dexter hoyos Referring Provider First Name Christophe Referring Provider Last Name Dexter Referring Provider Specialty Internal Me dicine Referred Organization [facility] Referred Provider Bill Solis Referred Address [address] [place] [phone] Referred Provider Specialty Surgery Referral Priority Routine General Notes Mrs. Salgado is an as ymptomatic, low risk patient being referred for a screening colonoscopy. Her last colonoscopy was in 2012. She denies change in appetite, weight or bowel habits. She denies heartburn or dysphagia. She denies abdominal pain, melena or hematochezia. [facility] Other Summary Purpose Family History No Family [...] FOR VISIT (unrecogniz ed section and content) Reason Comments Gynecologic Exam Denies concerns, Den ies bowel/bladder/breast concerns. Denies vaginal bleeding/spotting. INFORMATION SOURCE (unrecogn ized section and content) DATE CREATED AUTHOR 08/13/2022 [facility] DATE CREATED AUTHOR AUTHOR'S ORGANIZ ATION 03/20/2024 [facility] DATE CREATED AUTHOR AUTHOR'S ORGANIZ ATION 04/02/2024 [facility] DATE CREATED AUTHOR AUTHOR'S ORGANIZ ATION 06/18/2024 [facility] EPIC Care Teams (unrecognized sec tion and content) Team Status: Active Member Role Status Dates Christophe Renteria DO Primary Care Provider Active Team Status: Inactive Member Role Status Dates Christophe Renteria DO Primary Care Provider Active Start: March 17, [...] Renteria DO Primary Care Provider Active Start: December 14, 2023 End: December 14, 2023 Referral Self Attending Provider Active Start: A pril 2023 End: December 14, 2023 Team Status: Inactive Member Role Status Dates Christophe Renteria DO Primary Care Provider Active Syeda Moreno DO Attending Provider Active Donor Recruiter Relationship Specialty Start Date End Date Christophe Renteria MD [address] [place] [id number] PCP - General Internal Medicine 05/21/23 Donor Recruiter Relationship Specialty Start Date End Date Christophe Renteria MD [address] [place] [id number] PCP - General Internal Medicine 05/21/23 Goals (unrecognized section and content) Goals may [...] BE BASED ON THE PRIMARY CLINICAL RECORDS. [facility] [employer] provides no warranty or guarantee of the accuracy or completeness of information in this document.
[2024-07-30 10:33] LABS: Thyroid Stimulating Hormone 1.457 uIU/mL (0.358-3.740)
== END 2024-07-30 09:37 | disposition home or self-care (01) ==
LOC: LAB 09:36
PROVIDERS: PCP Internal Medicine; Visit Provider Internal Medicine
DX: E55.9 Vitamin D deficiency, unspecified (principal); E06.3 Autoimmune thyroiditis
CPT/HCPCS: 36415; 82306; 84443